=== PATIENT | male | born 1965 | race Caucasian/White ===

== ENCOUNTER 2019-08-05 01:30 | Outpatient (CLI) | payer MEDICAID, SELFPAY ==
--- NOTE | 2019-08-05 | DI.US_ITS ---
EXAM: US HERNIA CLINICAL HISTORY: LUMP RT GROIN, ? HERNIA. TECHNIQUE: Ultrasound was performed using standard protocol. COMPARISON: No exams were available for comparison FINDINGS: Sonographic assessment utilizing grayscale and color Doppler imaging was performed and targeted to th e area of clinical concern. There is a bowel containing right inguinal hernia. There is peristalsis of the bowel. The hernia me asures 3 x 1.2 x 2.4 cm. IMPRESSION: Bowel containing right inguinal hernia. DATA REPOSITORY:
== END 2019-08-05 01:50 ==
PROVIDERS: PCP Nurse Practitioner; Visit Provider Nurse Practitioner
DX: R19.03 Right lower quadrant abdominal swelling, mass and lump (principal); K40.90 Unilateral inguinal hernia, without obstruction or gangrene, not specified as recurrent
CPT/HCPCS: 76857

== ENCOUNTER 2019-08-08 07:40 | Outpatient (CLI) | payer MEDICAID, SELFPAY ==
[2019-08-08 19:12] LABS: COVID-19 RT-PCR UVMMC Result Negative (Negative)
== END 2019-08-08 08:00 ==
PROVIDERS: PCP Nurse Practitioner; Visit Provider Surgery
DX: Z01.818 Encounter for other preprocedural examination (principal); Z11.59 Encounter for screening for other viral diseases
CPT/HCPCS: U0003

== ENCOUNTER 2019-08-12 07:21 | Day surgery (SDC) | payer MEDICAID, SELFPAY ==
[2019-08-12] VITALS (8 sets, daily range): BP systolic 128–147; BP diastolic 83–99; PULSE 53–80; RESP 11–17; TEMP 36.3–37.2; O2SAT 95–98
[2019-08-12] MEDS: Lactated Ringers 1,000 ML 80 ML IV (07:50)
--- NOTE | 2019-08-12 08:35 | PDOC.DSDIS_ITS ---
Discharge Plan Disposition Patient Disposition: HOME Condition: Good Discharge Details Reason For Visit: Right inguinal hernia repair with mesh Attending Provider: Karena Gloria Primary Care Provider: Risa Orellana Home Meds and New Rx's Prescriptions: New hydrocodone-acetaminophen 5-325 mg Tablet 1 - 2 tab PO Q4H PRN (Reason: Pain) Qty: 15 RF: 0 Discharge Instructions Additional Instructions: The top bandage can be removed tomorrow. The steri strips will usually stick for about a week. When the edges start to curl up, they can be removed. It is okay to shower tomorrow, the water can run over the steri strips Do not swim or soak in a tub for two weeks Call for any concerns including fever, increased pain, vomiting, incision redness or drainage. Do not lift more than 15 pounds for four weeks. Walking and stairs are fine. Do not drive if on narcotic pain meds or if limited by pain. May use Tylenol alternating with ibuprofen for pain control. Ice is also an option. The maximum dose for Tylenol is 4000 mg/day. May use ibuprofen 800 mg every 8 hours as needed. If concerned about constipation, you may use a stool softener or milk of magnesia. Referrals: Karena Gloria MD [ [facility] STAFF PHYSICIAN] - (Return on 08/17 for a postop check) Activity:: Lift less than 15 pounds for one month Remove Dressings/Wound Care:: 24 hours Shower/Bathe:: 24 hours Diet:: As Tolerated Discharge Orders Discharge Orders: Discharge Order (Routine); Ordered 08/12/19 Ordered By: Karena Gloria DS: Diagnosis Discharge Diagnosis (1) Inguinal hernia of right side without obstruction or gangrene: Status: Acute
[2019-08-12] MEDS: ceFAZolin 2 GM/50 ML BAG IVPB (09:20)
[2019-08-12] MEDS: fentaNYL 100 MCG/2 ML VIAL IVP (11:32)
[2019-08-12] MEDS: HYDROcodone 5/Acetaminophen 325 TAB PO (12:24)
[2019-08-12] MEDS: Ibuprofen 800 MG TAB PO (12:50)
--- NOTE | 2019-08-12 16:31 | ROE_ITS ---
Date of service: 08/12/19 Operative Note Operative Note DATE OF PROCEDURE: 08/12/19 PRE-OP DIAGNOSIS: Right inguinal hernia POST-OP DIAGNOSIS: other (Right indirect and direct hernia) PROCEDURE: Right inguinal hernia repair with mesh SURGEON: Karena Gloria CRANE OPERATOR: Junior Burroughs ANESTHESIA: GETA, regional and local Patient was transported to: PACU Indications: This 54-year-old man presents with a reducible right inguinal hernia. He had an ultrasound performed that shows bowel present. Procedure Description: The patient was placed supine on the operating table and his right groin was prepped and draped sterilely. The ASIS and pubic tubercle were identified and a transverse incision marked between the 2 locations. Local anesthetic was infiltrated and the Ioban placed. Incision was made with knife and subcutaneous tissue divided with cautery down to the external oblique fascia. Any bridging veins that were encountered were clamped, divided and ligated with 3-0 Vicryl ties. Local anesthetic was infiltrated underneath the external oblique fascia. A small incision was made in the fascia and extended bluntly through the external inguinal ring. The spermatic cord was dissected free at the level of the pubic tubercle and encircled with a Conway drain. There was a small defect within the floor of the inguinal canal. There is also a moderate sized indirect hernia sac that did not have any contents. This was dissected free of the cord structures and suture ligated after opening the sac. A medium mesh plug was sutured into the internal ring with interrupted 2-0 Prolene sutures. The floor of the inguinal canal was reapproximated with 2-0 Prolene sutures. A flat sheet of mesh was sutured to the floor of the inguinal canal in standard Fan fashion. The cord was inspected and was not comp ressed by the mesh. There was good hemostasis. The iliohypogastric and ilioinguinal nerves were visualized and avoided. The external oblique fascia was closed with a running 3-0 Vicryl stitch and Mayte's fascia closed with interrupted 3-0 Vicryl sutures. The skin was then closed with a running 4 Monocryl subcuticular stitch. He tolerated the procedure well and was stable to recovery.
== END 2019-08-12 13:41 | disposition home or self-care (01) ==
PROVIDERS: PCP Nurse Practitioner; Visit Provider Surgery
PROC: (CPT 49505; principal; 2019-08-12 08:30)
DX: K40.90 Unilateral inguinal hernia, without obstruction or gangrene, not specified as recurrent (principal); G89.18 Other acute postprocedural pain
CPT/HCPCS: 49505; 76942; C1781; J0690; J1100; J2405; J3010

== ENCOUNTER 2020-10-13 08:18 | Outpatient (REF) | payer MEDICAID, SELFPAY ==
[2020-10-13 08:42] LABS: HCT 45.7 % (40.0-50.0); HGB 15.1 g/dL (13.5-17.5); MCH 30.3 pg (27.0-33.0); MCV 91.6 fL (80-95); MPV 10.4 fL (8.0-11.0); Platelet Count 164 10^3/uL (130-400); RBC 4.99 10^6/uL (4.36-5.78); RDW 13.2 % (11.8-14.1); RDW-SD 45.1 fL; WBC 5.31 10^3/uL (4.4-10.8)
[2020-10-13 09:02] LABS: ALT 135 U/L (16-63); AST 70 U/L (15-37); Albumin 4.1 g/dL (3.4-5.0); Alkaline Phosphatase 201 U/L (46-116); Anion Gap 14.3 mmol/L (3-11); BUN 16 mg/dL (7-18); Bilirubin, Total 0.5 mg/dL (0.2-1.0); CO2 22.7 mmol/L (21.0-32.0); CREATININE 1.1 mg/dL (0.70-1.30); Calcium 9.4 mg/dL (8.5-10.1); Calculated LDL 125 mg/dL (<100); Chloride 103 mmol/L (98-107); Cholesterol 190 mg/dL (<200); Glucose 154 mg/dL (74-106); HDL Cholesterol 48 mg/dL (40-60); Potassium 3.9 mmol/L (3.5-5.1); Sodium 140 mmol/L (136-145); Triglyceride 86 mg/dL (<150)
[2020-10-13 09:14] LABS: Amylase 58 U/L (25-115); C-Reactive Protein 0.54 mg/dL (0.0-0.3); Lipase 442 U/L (73-393)
== END 2020-10-13 08:19 | disposition home or self-care (01) ==
LOC: NCHCN 08:18
PROVIDERS: PCP Nurse Practitioner; Referring Provider Nurse Practitioner; Visit Provider Nurse Practitioner
DX: R11.0 Nausea (principal); R10.9 Unspecified abdominal pain; R63.4 Abnormal weight loss; E78.5 Hyperlipidemia, unspecified; F32.9 Major depressive disorder, single episode, unspecified
CPT/HCPCS: 80053; 80061; 83690; 85027; 82150; 86140

== ENCOUNTER 2020-10-13 08:21 | Outpatient (CLI) | payer MEDICAID, SELFPAY ==
--- NOTE | 2020-10-13 | DI.CT_ITS ---
Exam(s) CT ABDOMEN PELVIS W EXAM: CT ABDOMEN PELVIS W CLINICAL HISTORY: ABD PAIN, R10.9, WT LOSS, R63.4, NAUSEA, R11.0. TECHNIQUE: Imaging Protocol: Axial computed tomography images with coronal and sagittal reformatted images were created and reviewed CONTRAST MATERIAL: Intravenous: Omnipaque 100cc Oral: None COMPARISON: None FINDINGS: VISUALIZED LUNG BASES: No nodules nor pleural effusions evident. ABDOMEN: There is no ascites. LIVER: There are numerous metastatic lesions throughout both hepatic lobes. GALLBLADDER/BILIARY: No obvious gallbladder pathology. CBD is not dilated. PANCREAS: There is an ominous hypodense mass at the pancreatic neck-body junction which is suspicious for malignancy, measuring approximately 2.5 x 2.3 cm. Pancreatic duct in the remainder of the body a nd tail is slightly dilated. This mass is in the region of the bifurcation of the celiac artery. Ther e does not appear to be encasement of the superior mesenteric artery and vein. SPLEEN: Spleen is not enlarged. No obvious intrasplenic lesions. Splenic and portal veins are paten t. ADRENALS: There are no significant adrenal masses. KIDNEYS:There appears to be a possible nonobstructive calculus in the left kidney measuring 9 x 6 mil limeters, somewhat difficult to differentiate from the intravenous contrast. Nevertheless, there is n o hydronephrosis. There are no solid renal masses.. ABDOMINAL AORTA: Atherosclerotic but not enlarged. LYMPH NODES:There is no retroperitineal nor paraaortic adenopathy. ABDOMINAL WALL: No evidence of significant anterior abdominal wall hernia. GI: There is no evidence of bowel obstruction, free air, nor abscess. PELVIS: GI: No evidence of appendicitis.No evidence of sigmoid diverticulitis. LYMPH NODES: There is no intrapelvic nor inguinal adenopathy. REPRODUCTIVE: Prostate gland is slightly enlarged and contains multiple centrally located calcificati ons. There is no obturator adenopathy URINARY BLADDER: No calculi nor obvious masses evident OSSEOUS: No significant osseous lesions. IMPRESSION: 1. There is an ominous neoplastic appearing mass at the neck-body junction of the pancreas as describ ed above and there are multiple metastatic lesions throughout both hepatic lobes. Findings are consis tent with pancreatic malignancy and multiple hepatic metastases. 2. There is no ascites. 3. No nodules evident in the visualized lung bases. 4. Other findings as above. Sent a stat report. RADIATION DOSE DELIVERED: 533.43mGy.cm Total DLP DATA REPOSITORY: All CT scans at this facility are submitted to the National Radiology Data Registry (NRDR) Dose Index Registry (DIR) with the [employer] (ACR). RADIATION OPTIMIZATION: All CT scans at this facility use at least one of these dose optimization te chniques: automated exposure control; mA and/or kV adjustment per patient size (includes targeted exa ms where dose is matched to clinical indication); or iterative reconstruction.
[2020-10-13] MEDS: Breeza Beverage 473 ML BTL PO (09:19)
[2020-10-13] MEDS: Omnipaque 350 MG/ML 50 ML BTL IJ (09:19)
[2020-10-13] MEDS: Omnipaque 350 MG/ML 100 ML BTL IJ (10:39)
[2020-10-13] MEDS: Normal Saline Flush 10 ML SYR IVP (10:41)
== END 2020-10-13 08:41 ==
PROVIDERS: PCP Nurse Practitioner; Visit Provider Nurse Practitioner
DX: R63.4 Abnormal weight loss (principal); R11.0 Nausea; R10.9 Unspecified abdominal pain; C25.8 Malignant neoplasm of overlapping sites of pancreas; C78.7 Secondary malignant neoplasm of liver and intrahepatic bile duct
CPT/HCPCS: 74177; J3490; Q9967

== ENCOUNTER 2020-11-12 10:58 | Outpatient (CLI) | payer MEDICAID, SELFPAY ==
[2020-11-12 16:34] LABS: Abs Immature Grans 0.02 10^3/uL (0.0-0.06); Absolute Basophil Count 0.01 10^3/uL (0.0-0.2); Absolute Eosinophil Count 0.09 10^3/uL (0.0-0.7); Absolute Lymphocyte Count 1.09 10^3/uL (1.2-3.4); Absolute Monocyte Count 0.62 10^3/uL (0.1-0.8); Absolute Neutrophil Count 5.84 10^3/uL (1.2-6.7); Basophils % 0.1; Eosinophils % 1.2; HCT 44.5 % (40.0-50.0); HGB 14.9 g/dL (13.5-17.5); Immature Grans % 0.3; Lymphocytes % 14.2; MCHC 33.5 % (32.0-36.0); MCV 92.7 fL (80-95); Monocytes % 8.1; Neutrophils % 76.1; Nucleated RBC 0 %; Platelet Count 184 10^3/uL (130-400); RDW 13.8 % (11.8-14.1); RDW-SD 47.6 fL; WBC 7.67 10^3/uL (4.4-10.8)
[2020-11-12 16:45] LABS: Diff Comment Agrees w/ Instrument; RBC Morphology Normal
[2020-11-12 16:47] LABS: ALT 225 U/L (16-63); AST 146 U/L (15-37); Albumin 3.9 g/dL (3.4-5.0); Alkaline Phosphatase 543 U/L (46-116); Anion Gap 9.8 mmol/L (3-11); BUN 20 mg/dL (7-18); CO2 26.2 mmol/L (21.0-32.0); Calcium 9.5 mg/dL (8.5-10.1); Chloride 102 mmol/L (98-107); Glucose 87 mg/dL (74-106); Potassium 4.2 mmol/L (3.5-5.1); Sodium 138 mmol/L (136-145); Total Protein 7.7 g/dL (6.4-8.2)
[2020-11-15 15:09] LABS: CA 19-9 >70000 U/mL (<35)
[2020-11-17 17:05] LABS: DPYD Phenotype Normal metabolizer
== END 2020-11-12 10:59 | disposition home or self-care (01) ==
LOC: LBO 11-19 11:00
PROVIDERS: PCP Nurse Practitioner; Visit Provider Internal Medicine Hematology & Oncology
DX: C25.0 Malignant neoplasm of head of pancreas (principal)
CPT/HCPCS: 36415; 80053; 81232; 85025; 86301

== ENCOUNTER 2020-12-03 00:55 | Outpatient (RCR) | payer MEDICAID, SELFPAY ==
[2020-11-23 07:48] LABS: Abs Immature Grans 0.02 10^3/uL (0.0-0.06); Absolute Basophil Count 0.02 10^3/uL (0.0-0.2); Absolute Eosinophil Count 0.18 10^3/uL (0.0-0.7); Absolute Lymphocyte Count 1.07 10^3/uL (1.2-3.4); Absolute Monocyte Count 0.67 10^3/uL (0.1-0.8); Absolute Neutrophil Count 5.69 10^3/uL (1.2-6.7); Basophils % 0.3; Eosinophils % 2.4; HCT 42.4 % (40.0-50.0); Immature Grans % 0.3; MCH 30.6 pg (27.0-33.0); MCV 92.8 fL (80-95); MPV 10.9 fL (8.0-11.0); Monocytes % 8.8; Neutrophils % 74.2; Nucleated RBC 0 %; Platelet Count 188 10^3/uL (130-400); RBC 4.57 10^6/uL (4.36-5.78); RDW 14.4 % (11.8-14.1); RDW-SD 49.3 fL; WBC 7.65 10^3/uL (4.4-10.8)
[2020-11-23 08:05] LABS: ALT 232 U/L (16-63); AST 181 U/L (15-37); Albumin 3.5 g/dL (3.4-5.0); Alkaline Phosphatase 659 U/L (46-116); Anion Gap 8.8 mmol/L (3-11); BUN 18 mg/dL (7-18); Bilirubin, Total 1.3 mg/dL (0.2-1.0); CO2 28.2 mmol/L (21.0-32.0); Calcium 9.6 mg/dL (8.5-10.1); Chloride 102 mmol/L (98-107); Glucose 115 mg/dL (74-106); Sodium 139 mmol/L (136-145); Total Protein 7.1 g/dL (6.4-8.2)
[2020-11-23] MEDS: Normal Saline Flush 10 ML SYR IVP (08:48)
[2020-12-03] MEDS: Heparin 500 UNITS/5 ML SYRINGE IV (07:37)
[2020-12-03] MEDS: Normal Saline Flush 10 ML SYR IVP (07:37)
[2020-12-03 07:49] LABS: Abs Immature Grans 0.02 10^3/uL (0.0-0.06); Absolute Basophil Count 0.02 10^3/uL (0.0-0.2); Absolute Lymphocyte Count 1.07 10^3/uL (1.2-3.4); Absolute Monocyte Count 0.43 10^3/uL (0.1-0.8); Basophils % 0.3; Eosinophils % 1.6; HCT 40.9 % (40.0-50.0); HGB 13.4 g/dL (13.5-17.5); Immature Grans % 0.3; Lymphocytes % 16.9; MCH 31.5 pg (27.0-33.0); MCHC 32.8 % (32.0-36.0); MCV 96.2 fL (80-95); MPV 10.3 fL (8.0-11.0); Monocytes % 6.8; Neutrophils % 74.1; Nucleated RBC 0 %; Platelet Count 251 10^3/uL (130-400); RBC 4.25 10^6/uL (4.36-5.78); RDW 14.3 % (11.8-14.1); RDW-SD 50.1 fL; WBC 6.34 10^3/uL (4.4-10.8)
[2020-12-03 08:02] LABS: ALT 97 U/L (16-63); AST 43 U/L (15-37); Albumin 3.2 g/dL (3.4-5.0); Alkaline Phosphatase 591 U/L (46-116); Anion Gap 6.6 mmol/L (3-11); BUN 19 mg/dL (7-18); Bilirubin, Total 0.5 mg/dL (0.2-1.0); CO2 28.4 mmol/L (21.0-32.0); CREATININE 0.9 mg/dL (0.70-1.30); Calcium 8.9 mg/dL (8.5-10.1); Chloride 105 mmol/L (98-107); Glucose 129 mg/dL (74-106); Potassium 3.9 mmol/L (3.5-5.1); Sodium 140 mmol/L (136-145); Total Protein 6.8 g/dL (6.4-8.2)
== END 2020-12-05 23:59 | disposition home or self-care (01) ==
LOC: INF 00:55
PROVIDERS: PCP Nurse Practitioner; Visit Provider Internal Medicine Hematology & Oncology
DX: C25.0 Malignant neoplasm of head of pancreas (principal); Z45.2 Encounter for adjustment and management of vascular access device
CPT/HCPCS: 36591; 80053; 85025; 86301

== ENCOUNTER 2020-12-24 02:28 | Outpatient (RCR) | payer MEDICAID, SELFPAY ==
[2020-12-24] MEDS: Normal Saline Flush 10 ML SYR IVP (07:34)
[2020-12-24 07:39] LABS: Abs Immature Grans 0.02 10^3/uL (0.0-0.06); Absolute Basophil Count 0.02 10^3/uL (0.0-0.2); Absolute Eosinophil Count 0.07 10^3/uL (0.0-0.7); Absolute Lymphocyte Count 1.34 10^3/uL (1.2-3.4); Absolute Neutrophil Count 2.83 10^3/uL (1.2-6.7); Basophils % 0.4; Eosinophils % 1.5; HCT 42.7 % (40.0-50.0); HGB 14.2 g/dL (13.5-17.5); Immature Grans % 0.4; Lymphocytes % 28.6; MCH 32.6 pg (27.0-33.0); MCHC 33.3 % (32.0-36.0); MCV 97.9 fL (80-95); MPV 9.9 fL (8.0-11.0); Monocytes % 8.5; Neutrophils % 60.6; Nucleated RBC 0 %; Platelet Count 142 10^3/uL (130-400); RBC 4.36 10^6/uL (4.36-5.78); RDW 14.8 % (11.8-14.1); RDW-SD 53.7 fL; WBC 4.68 10^3/uL (4.4-10.8)
[2020-12-24 07:58] LABS: ALT 94 U/L (16-63); AST 46 U/L (15-37); Albumin 3.6 g/dL (3.4-5.0); Alkaline Phosphatase 267 U/L (46-116); BUN 18 mg/dL (7-18); Bilirubin, Total 0.3 mg/dL (0.2-1.0); CREATININE 0.9 mg/dL (0.70-1.30); Calcium 9.5 mg/dL (8.5-10.1); Chloride 105 mmol/L (98-107); Glucose 115 mg/dL (74-106); Potassium 3.5 mmol/L (3.5-5.1); Sodium 141 mmol/L (136-145); Total Protein 6.9 g/dL (6.4-8.2)
[2020-12-27 16:06] LABS: CA 19-9 15852 U/mL (<35)
== END 2021-01-04 23:59 | disposition home or self-care (01) ==
LOC: INF 02:28
PROVIDERS: PCP Nurse Practitioner; Visit Provider Internal Medicine Hematology & Oncology
DX: C25.0 Malignant neoplasm of head of pancreas (principal); Z45.2 Encounter for adjustment and management of vascular access device
CPT/HCPCS: 36591; 80053; 85025; 86301

== ENCOUNTER 2021-01-20 01:54 | Outpatient (CLI) | payer MEDICAID, SELFPAY ==
[2021-01-20] MEDS: Breeza Beverage 473 ML BTL PO ×2 (10:13→10:14)
[2021-01-20] MEDS: Omnipaque 350 MG/ML 50 ML BTL PO (10:14)
[2021-01-20] MEDS: Omnipaque 350 MG/ML 100 ML BTL IJ (10:17)
--- NOTE | 2021-01-20 10:20 | DI.CT_ITS ---
Exam(s) CT CHEST/ABD/PEL W EXAM: CT CHEST/ABD/PEL W CLINICAL HISTORY: PANCREATIC CA, ASSESS TREATMENT RESPONSE. TECHNIQUE: Imaging Protocol: Axial computed tomography images with coronal and sagittal reformatted images were created and reviewed CONTRAST MATERIAL: Intravenous: Omnipaque 350 Contrast volume:100 ml Oral: Yes. Oral contrast was administered for bowel opacification COMPARISON: CT CT ABDOMEN PELVIS W from 10/13/2020 FINDINGS: CHEST: PULMONARY ARTERIES: There is intraluminal filling defect within 2nd order vessel of the left lung at bifurcation of lingular and lower lobe vessels (series 11/images 75-83). No other intraluminal filli ng defects seen in either lung field. LUNGS: No evidence of pulmonary infarction. No metastatic lung nodules nor pleural effusions. No co nfluent infiltrates. Mild benign-appearing increased markings noted in the inferior lingular segment of the left lung. MEDIASTINUM: There is no hilar nor mediastinal adenopathy. Visualized thyroid unremarkable. CARDIAC: Heart size is normal. There is no pericardial effusion.Caliber thoracic aorta is within nor mal limits. No dissection. There is no shift of the interventricular septum. OSSEOUS: There are now nonexpansile sclerotic densities in vertebral bodies were not previously prese nt and consistent with sclerotic metastases. Also evident in the right iliac bone, not previously pr esent. This measures 1.0 by 1.1 cm in the right iliac bone. Largest seen in the vertebral bodies is 10 x 9 x 15 millimeter., This in L1 vertebral body anteriorly.There is also similar sclerotic bone l esions seen midsternum, also nonexpansile. ABDOMEN: There is no ascites. LIVER: Multiple metastatic lesions are again noted but appear to have somewhat decreased in size, mos t probably response to therapy. GALLBLADDER/BILIARY: No obvious gallbladder pathology. CBD is not dilated. PANCREAS: Mass in the pancreas has slightly decreased in size; the pancreatic mass is again noted to be in the region of the bifurcation of the celiac artery into the splenic artery and common hepatic a rtery, both of which are patent. SPLEEN: Spleen size is upper normal. However, there are now fused hypodensities in the spleen, large st located medially and measuring 2.4 x 1.8 cm. These are possibly metastatic. PORTAL VEIN: The main portal vein remains patent, as do the intrahepatic portal veins. Splenic vein is patent. Portal vein confluence and superior mesenteric veins are patent. ADRENALS: There are no significant adrenal masses. KIDNEYS: Right kidney unremarkable. Nonobstructive calculi in left kidney again noted. No hydroneph rosis nor hydroureter.. No cysts evident. ABDOMINAL AORTA: Atherosclerotic but not enlarged. LYMPH NODES: No prominent lymph nodes. Previously present nodes of slightly decreased in size. ABDOMINAL WALL: No evidence of significant anterior abdominal wall nor inguinal hernia. GI: There is no evidence of bowel obstruction. PELVIS: LYMPH NODES: There is no intrapelvic nor inguinal adenopathy. GI: No evidence of appendicitis.No evidence of sigmoid diverticulitis. URINARY BLADDER: No calculi nor masses evident REPRODUCTIVE: Prostate size upper normal. Prominent central calcifications in the prostate noted. OSSEOUS: Blastic osseous metastases noted in the bones of the pelvis and sacrum vertebral bodies. Al so involving posterior aspect of the left hip acetabulum. IMPRESSION: 1. Intraluminal filling defect in the left lung noted consistent with pulmonary embolus, as described above. There is no evidence of pulmonary infarction nor pleural effusion. No emboli seen in the op posite-right lung. No evidence right heart strain. 2. There are no metastatic lesions either lung and there are no pleural effusions nor intrathoracic a denopathy. 3. Multiple metastatic lesions in the liver again noted although these appear to have somewhat decrea sed in size when compared to the October 2020 study. The mass in the 4. The mass in the pancreas has slightly decreased in size. Pancreatic duct is still dilated. 5. There are now multiple sclerotic metastatic bone lesions in the vertebral bodies and bones of the pelvis, not previously present. 6. Nonobstructive calculi again noted kidney. No other significant renal findings. No hydronephros is. Other findings as above RADIATION DOSE DELIVERED: 1,015.79mGy.cm Total DLP DATA REPOSITORY: All CT scans at this facility are submitted to the National Radiology Data Registry (NRDR) Dose Index Registry (DIR) with the [employer] (ACR). RADIATION OPTIMIZATION: All CT scans at this facility use at least one of these dose optimization te chniques: automated exposure control; mA and/or kV adjustment per patient size (includes targeted exa ms where dose is matched to clinical indication); or iterative reconstruction.
== END 2021-01-20 02:14 ==
PROVIDERS: PCP Nurse Practitioner; Visit Provider Internal Medicine Hematology & Oncology
DX: C25.0 Malignant neoplasm of head of pancreas (principal)
CPT/HCPCS: 74177; 71260; J3490; Q9967

== ENCOUNTER 2021-01-20 02:09 | Outpatient (RCR) | payer MEDICAID, SELFPAY ==
[2021-01-07] MEDS: Normal Saline Flush 10 ML SYR IVP (07:42)
[2021-01-07 07:45] LABS: Abs Immature Grans 0.01 10^3/uL (0.0-0.06); Absolute Basophil Count 0.01 10^3/uL (0.0-0.2); Absolute Eosinophil Count 0.06 10^3/uL (0.0-0.7); Absolute Lymphocyte Count 1.19 10^3/uL (1.2-3.4); Absolute Monocyte Count 0.37 10^3/uL (0.1-0.8); Absolute Neutrophil Count 4.18 10^3/uL (1.2-6.7); Basophils % 0.2; HCT 43.8 % (40.0-50.0); HGB 14.6 g/dL (13.5-17.5); Immature Grans % 0.2; Lymphocytes % 20.4; MCH 32.2 pg (27.0-33.0); MCHC 33.3 % (32.0-36.0); MCV 96.5 fL (80-95); Monocytes % 6.4; Neutrophils % 71.8; Nucleated RBC 0 %; Platelet Count 143 10^3/uL (130-400); RBC 4.54 10^6/uL (4.36-5.78); RDW 14.8 % (11.8-14.1); RDW-SD 53.1 fL; WBC 5.82 10^3/uL (4.4-10.8)
[2021-01-07 08:05] LABS: ALT 88 U/L (16-63); AST 40 U/L (15-37); Albumin 3.7 g/dL (3.4-5.0); Alkaline Phosphatase 229 U/L (46-116); Anion Gap 7.6 mmol/L (3-11); BUN 18 mg/dL (7-18); Bilirubin, Total 0.3 mg/dL (0.2-1.0); CO2 25.4 mmol/L (21.0-32.0); CREATININE 0.9 mg/dL (0.70-1.30); Calcium 9.3 mg/dL (8.5-10.1); Chloride 106 mmol/L (98-107); Glucose 160 mg/dL (74-106); Potassium 3.5 mmol/L (3.5-5.1); Sodium 139 mmol/L (136-145); Total Protein 7.1 g/dL (6.4-8.2)
[2021-01-10 12:27] LABS: CA 19-9 6484 U/mL (<35)
[2021-01-20] MEDS: Normal Saline Flush 10 ML SYR IVP (08:09)
[2021-01-20 08:38] LABS: Abs Immature Grans 0.02 10^3/uL (0.0-0.06); Absolute Basophil Count 0.02 10^3/uL (0.0-0.2); Absolute Eosinophil Count 0.05 10^3/uL (0.0-0.7); Absolute Lymphocyte Count 1.45 10^3/uL (1.2-3.4); Absolute Neutrophil Count 3.52 10^3/uL (1.2-6.7); Basophils % 0.4; Eosinophils % 0.9; HCT 43.6 % (40.0-50.0); HGB 14.4 g/dL (13.5-17.5); Immature Grans % 0.4; Lymphocytes % 26.1; MCH 32.1 pg (27.0-33.0); MCV 97.3 fL (80-95); MPV 9.9 fL (8.0-11.0); Neutrophils % 63.2; Nucleated RBC 0 %; Platelet Count 142 10^3/uL (130-400); RBC 4.48 10^6/uL (4.36-5.78); RDW 14.9 % (11.8-14.1); RDW-SD 53.6 fL; WBC 5.56 10^3/uL (4.4-10.8)
[2021-01-20 09:00] LABS: ALT 82 U/L (16-63); AST 40 U/L (15-37); Albumin 3.7 g/dL (3.4-5.0); Alkaline Phosphatase 181 U/L (46-116); Anion Gap 8.3 mmol/L (3-11); BUN 19 mg/dL (7-18); Bilirubin, Total 0.2 mg/dL (0.2-1.0); CO2 25.7 mmol/L (21.0-32.0); CREATININE 0.9 mg/dL (0.70-1.30); Calcium 9.2 mg/dL (8.5-10.1); Chloride 107 mmol/L (98-107); Glucose 88 mg/dL (74-106); Sodium 141 mmol/L (136-145)
[2021-01-21 12:04] LABS: CA 19-9 3904 U/mL (<35)
== END 2021-02-04 23:59 | disposition home or self-care (01) ==
LOC: INF 02:09
PROVIDERS: PCP Nurse Practitioner; Visit Provider Internal Medicine Hematology & Oncology
DX: C25.0 Malignant neoplasm of head of pancreas (principal); Z45.2 Encounter for adjustment and management of vascular access device
CPT/HCPCS: 36591; 80053; 85025; 86301

== ENCOUNTER 2021-02-25 01:18 | Outpatient (RCR) | payer MEDICAID, SELFPAY ==
[2021-02-11] MEDS: Normal Saline Flush 10 ML SYR IVP (07:44)
[2021-02-11 07:56] LABS: Abs Immature Grans 0.06 10^3/uL (0.0-0.06); Absolute Basophil Count 0.03 10^3/uL (0.0-0.2); Absolute Eosinophil Count 0.04 10^3/uL (0.0-0.7); Absolute Lymphocyte Count 1.77 10^3/uL (1.2-3.4); Absolute Monocyte Count 0.68 10^3/uL (0.1-0.8); Absolute Neutrophil Count 3.65 10^3/uL (1.2-6.7); Basophils % 0.5; Eosinophils % 0.6; HCT 46.4 % (40.0-50.0); HGB 15.4 g/dL (13.5-17.5); Lymphocytes % 28.4; MCH 32.2 pg (27.0-33.0); MCHC 33.2 % (32.0-36.0); MCV 96.9 fL (80-95); MPV 9.8 fL (8.0-11.0); Monocytes % 10.9; Neutrophils % 58.6; Nucleated RBC 0 %; Platelet Count 160 10^3/uL (130-400); RBC 4.79 10^6/uL (4.36-5.78); RDW 15.8 % (11.8-14.1); RDW-SD 56.5 fL; WBC 6.23 10^3/uL (4.4-10.8)
[2021-02-11 08:09] LABS: ALT 141 U/L (16-63); AST 49 U/L (15-37); Alkaline Phosphatase 157 U/L (46-116); Anion Gap 9.6 mmol/L (3-11); BUN 19 mg/dL (7-18); Bilirubin, Total 0.2 mg/dL (0.2-1.0); CO2 28.4 mmol/L (21.0-32.0); CREATININE 1.1 mg/dL (0.70-1.30); Calcium 9.8 mg/dL (8.5-10.1); Chloride 101 mmol/L (98-107); Glucose 145 mg/dL (74-106); Potassium 3.4 mmol/L (3.5-5.1); Sodium 139 mmol/L (136-145); Total Protein 7.5 g/dL (6.4-8.2)
[2021-02-14 11:17] LABS: CA 19-9 3114 U/mL (<35)
[2021-02-25] MEDS: Normal Saline Flush 10 ML SYR IVP (07:36)
[2021-02-25 07:51] LABS: Abs Immature Grans 0.03 10^3/uL (0.0-0.06); Absolute Basophil Count 0.01 10^3/uL (0.0-0.2); Absolute Eosinophil Count 0.04 10^3/uL (0.0-0.7); Absolute Lymphocyte Count 1.35 10^3/uL (1.2-3.4); Absolute Monocyte Count 0.37 10^3/uL (0.1-0.8); Absolute Neutrophil Count 3.22 10^3/uL (1.2-6.7); Basophils % 0.2; Eosinophils % 0.8; HCT 43.5 % (40.0-50.0); HGB 14.5 g/dL (13.5-17.5); Immature Grans % 0.6; Lymphocytes % 26.9; MCH 32.4 pg (27.0-33.0); MCHC 33.3 % (32.0-36.0); MCV 97.3 fL (80-95); MPV 9.8 fL (8.0-11.0); Monocytes % 7.4; Neutrophils % 64.1; Nucleated RBC 0 %; Platelet Count 120 10^3/uL (130-400); RBC 4.47 10^6/uL (4.36-5.78); WBC 5.02 10^3/uL (4.4-10.8)
[2021-02-25 08:03] LABS: ALT 78 U/L (16-63); AST 38 U/L (15-37); Albumin 3.8 g/dL (3.4-5.0); Alkaline Phosphatase 147 U/L (46-116); Anion Gap 9.7 mmol/L (3-11); BUN 12 mg/dL (7-18); Bilirubin, Total 0.3 mg/dL (0.2-1.0); CO2 26.3 mmol/L (21.0-32.0); Calcium 9.2 mg/dL (8.5-10.1); Chloride 103 mmol/L (98-107); Glucose 165 mg/dL (74-106); Potassium 3.3 mmol/L (3.5-5.1); Sodium 139 mmol/L (136-145); Total Protein 7.1 g/dL (6.4-8.2)
[2021-02-28 12:44] LABS: CA 19-9 3110 U/mL (<35)
== END 2021-03-07 23:59 | disposition home or self-care (01) ==
LOC: INF 01:18
PROVIDERS: PCP Nurse Practitioner; Visit Provider Internal Medicine Hematology & Oncology
DX: C25.0 Malignant neoplasm of head of pancreas (principal); Z45.2 Encounter for adjustment and management of vascular access device
CPT/HCPCS: 36591; 80053; 85025; 86301

== ENCOUNTER 2021-03-24 01:07 | Outpatient (CLI) | payer MEDICAID, SELFPAY ==
--- NOTE | 2021-03-24 | DI.CT_ITS ---
Exam(s) CT CHEST/ABD/PEL W EXAM: CT CHEST/ABD/PEL W CLINICAL HISTORY: PANCREATIC CA METASTASIZED TO LIVER,C25.9,C78.7,RESTAGING TECHNIQUE: Imaging Protocol: Axial computed tomography images with coronal and sagittal reformatted images were created and reviewed CONTRAST MATERIAL: Intravenous: Omnipaque 350 Contrast volume:100 mL Oral: Yes COMPARISON: CT CT ABDOMEN PELVIS W from 10/13/[address] CHEST/ABD/PEL W from 01/20/2021 FINDINGS: CHEST: Tracheobronchial tree: Patent where visualized. Pulmonary parenchyma: No consolidation or dominant measurable mass. No architectural distortion. Visualized thyroid gland: Unremarkable. Mediastinum and Abimbola: No dominant adenopathy or fluid collection. The esophagus is unremarkable. Pleura: No effusion or pneumothorax. Heart: The heart is not dilated. Coronary artery calcification. No pericardial effusion. Pulmonary arteries: No pulmonary emboli are identified. Aorta: Thoracic aorta non-dilated. No evidence of dissection. Lymph nodes: Within normal limits. Tubes, Catheters, and Lines: The tip of the Bajpcd-X-Xnxh catheter is at the junction of the superior vena cava and right atrium. Soft tissues: Unremarkable. Bones:Osseous sclerotic metastatic disease is noted. ABDOMEN: Liver: There are multiple hepatic metastases. Some of the lesions have shown increase in size. Ther e is a subcapsular lesion in the left lobe which now measures 1.8 x 1.6 cm. This compares to 0.8 x 1 .4 cm. The majority of the lesions are stable in size. Portal, Superior Mesenteric, and Splenic Veins: There does appear to be some narrowing of the splenic vein at the confluence with the superior mesenteric vein. There are numerous left upper quadrant co llaterals that have developed since the initial CT scan from 10/13/2020. Gallbladder and Biliary Tract: No radiodense calculus or dilation. Pancreas: The pancreatic mass has a similar size compared to the prior examination from 01/20/2021. Atrophy of the body and tail of the pancreas is noted. The adjacent arteries are patent. Spleen: Upper limits of normal in size. Adrenals: There is 1.2 cm nodule in the right adrenal gland. The left adrenal gland appears stable. Kidneys: Normal size, contour and axis. Left nephrolithiasis. No hydronephrosis. No masses seen. Abdominal Aorta: Abdominal portion non-dilated. Atherosclerosis. Bowel: No obstruction or bowel wall thickening. Appendix is unremarkable. There is a large amount of stool throughout the colon Peritoneal Cavity: No ascites, collection or mesenteric inflammatory response. No free air. Lymph Nodes: Within normal limits. Bones: Osseous metastatic disease. Soft Tissues: Unremarkable. PELVIS: Bladder: There is diffuse thickening of the wall of the urinary bladder. This may be due to underdis tention. No perivesicular inflammatory changes are seen. Reproductive Organs: Unremarkable as visualized. Lymph Nodes: Within normal limits. Bones: Osseous metastatic disease. IMPRESSION: 1. Stable size of the pancreatic mass. There does appear to be some narrowing of the splenic vein at its confluence with the superior mesenteric vein. Numerous upper abdominal collaterals are seen. 2. Hepatic metastatic disease. Overall stable size of the nodules. There is increase in size of 1 o f the nodules in the left lobe of the liver. 3. Stable right adrenal nodule. 4. Osseous metastatic disease. 5. No evidence of thoracic metastatic disease. RADIATION DOSE DELIVERED: 1,151.33mGy.cm Total DLP DATA REPOSITORY: All CT scans at this facility are submitted to the National Radiology Data Registry (NRDR) Dose Index Registry (DIR) with the [employer] (ACR). RADIATION OPTIMIZATION: All CT scans at this facility use at least one of these dose optimization te chniques: automated exposure control; mA and/or kV adjustment per patient size (includes targeted exa ms where dose is matched to clinical indication); or iterative reconstruction.
[2021-03-24] MEDS: Breeza Beverage 473 ML BTL PO (09:59)
[2021-03-24] MEDS: Omnipaque 350 MG/ML 50 ML BTL IJ (10:01)
[2021-03-24] MEDS: Omnipaque 350 MG/ML 100 ML BTL IJ (11:11)
== END 2021-03-24 01:27 ==
PROVIDERS: PCP Nurse Practitioner; Visit Provider Internal Medicine Hematology & Oncology
DX: C25.9 Malignant neoplasm of pancreas, unspecified (principal); C78.7 Secondary malignant neoplasm of liver and intrahepatic bile duct; N20.0 Calculus of kidney; N32.89 Other specified disorders of bladder; C79.51 Secondary malignant neoplasm of bone
CPT/HCPCS: 36415; 74177; 80053; 71260; 85025; 86301; J3490; Q9967

== ENCOUNTER 2021-03-24 01:19 | Outpatient (RCR) | payer MEDICAID, SELFPAY ==
[2021-03-11] MEDS: Normal Saline Flush 10 ML SYR IVP (07:43)
[2021-03-11 07:53] LABS: Abs Immature Grans 0.08 10^3/uL (0.0-0.06); Absolute Basophil Count 0.01 10^3/uL (0.0-0.2); Absolute Eosinophil Count 0.02 10^3/uL (0.0-0.7); Absolute Lymphocyte Count 1.44 10^3/uL (1.2-3.4); Absolute Monocyte Count 0.57 10^3/uL (0.1-0.8); Absolute Neutrophil Count 3.16 10^3/uL (1.2-6.7); Basophils % 0.2; Eosinophils % 0.4; HGB 14.8 g/dL (13.5-17.5); Immature Grans % 1.5; Lymphocytes % 27.3; MCH 32.9 pg (27.0-33.0); MCHC 33.6 % (32.0-36.0); MCV 97.8 fL (80-95); Monocytes % 10.8; Neutrophils % 59.8; Nucleated RBC 0 %; Platelet Count 130 10^3/uL (130-400); RDW-SD 54.4 fL; WBC 5.28 10^3/uL (4.4-10.8)
[2021-03-11 08:02] LABS: ALT 106 U/L (16-63); AST 41 U/L (15-37); Albumin 3.9 g/dL (3.4-5.0); Alkaline Phosphatase 150 U/L (46-116); Anion Gap 11.6 mmol/L (3-11); BUN 21 mg/dL (7-18); Bilirubin, Total 0.3 mg/dL (0.2-1.0); CO2 24.4 mmol/L (21.0-32.0); CREATININE 1.1 mg/dL (0.70-1.30); Calcium 9.6 mg/dL (8.5-10.1); Chloride 104 mmol/L (98-107); Glucose 129 mg/dL (74-106); Potassium 3.6 mmol/L (3.5-5.1); Sodium 140 mmol/L (136-145); Total Protein 7.4 g/dL (6.4-8.2)
[2021-03-14 12:03] LABS: CA 19-9 2940 U/mL (<35)
[2021-03-24] MEDS: Normal Saline Flush 10 ML SYR IVP (09:18)
[2021-03-24 09:44] LABS: Abs Immature Grans 0.02 10^3/uL (0.0-0.06); Absolute Basophil Count 0.01 10^3/uL (0.0-0.2); Absolute Eosinophil Count 0.05 10^3/uL (0.0-0.7); Absolute Lymphocyte Count 1.45 10^3/uL (1.2-3.4); Absolute Monocyte Count 0.52 10^3/uL (0.1-0.8); Absolute Neutrophil Count 3.63 10^3/uL (1.2-6.7); Basophils % 0.2; Eosinophils % 0.9; HCT 42.9 % (40.0-50.0); HGB 14.5 g/dL (13.5-17.5); Immature Grans % 0.4; Lymphocytes % 25.5; MCH 33.6 pg (27.0-33.0); MCHC 33.8 % (32.0-36.0); MCV 99.5 fL (80-95); MPV 10.1 fL (8.0-11.0); Monocytes % 9.2; Neutrophils % 63.8; Nucleated RBC 0 %; Platelet Count 105 10^3/uL (130-400); RBC 4.31 10^6/uL (4.36-5.78); RDW 14.8 % (11.8-14.1); WBC 5.68 10^3/uL (4.4-10.8)
[2021-03-24 09:53] LABS: ALT 89 U/L (16-63); AST 51 U/L (15-37); Albumin 3.6 g/dL (3.4-5.0); Alkaline Phosphatase 138 U/L (46-116); BUN 15 mg/dL (7-18); Bilirubin, Total 0.3 mg/dL (0.2-1.0); CREATININE 0.9 mg/dL (0.70-1.30); Calcium 9.4 mg/dL (8.5-10.1); Chloride 106 mmol/L (98-107); Glucose 87 mg/dL (74-106); Potassium 4.1 mmol/L (3.5-5.1); Sodium 139 mmol/L (136-145); Total Protein 6.9 g/dL (6.4-8.2)
[2021-03-25 12:14] LABS: CA 19-9 2500 U/mL (<35)
== END 2021-04-04 23:59 | disposition home or self-care (01) ==
LOC: INF 01:19
PROVIDERS: PCP Nurse Practitioner; Visit Provider Internal Medicine Hematology & Oncology
DX: C25.0 Malignant neoplasm of head of pancreas (principal); Z45.2 Encounter for adjustment and management of vascular access device
CPT/HCPCS: 36591; 80053; 85025; 86301

== ENCOUNTER 2021-05-05 02:35 | Outpatient (CLI) | payer MEDICAID, SELFPAY ==
[2021-05-05] MEDS: Omnipaque 350 MG/ML 50 ML BTL PO (09:25)
[2021-05-05] MEDS: Breeza Beverage 473 ML BTL PO (09:25)
--- NOTE | 2021-05-05 09:30 | DI.CT_ITS ---
Exam(s) CT CHEST/ABD/PEL W EXAM: CT CHEST/ABD/PEL W CLINICAL HISTORY: PANCREATIC CA METASTASIZED TO LIVER, C25.9, C78.7. TECHNIQUE: Imaging Protocol: Axial computed tomography images with coronal and sagittal reformatted images were created and reviewed CONTRAST MATERIAL: Intravenous: Omnipaque 350 Contrast volume:100 ml Oral: no COMPARISON: CT CT CHEST/ABD/PEL W from 03/24/2021 FINDINGS: CHEST: Port over right upper chest wall with tip in the upper right atrium. Tracheobronchial tree: Patent where visualized. Mediastinum and Abimbola: No dominant adenopathy or fluid collection. Pulmonary parenchyma: No consolidation or dominant measurable mass. No pulmonary nodules. Pleura: No effusion or pneumothorax. Lymph nodes: Within normal limits. Aorta: Thoracic portion non-dilated. No significant atherosclerotic changes. Heart: Normal size. Mild coronary artery calcifications. Bones: Scattered small sclerotic foci in the spine, shoulders and a few ribs. ABDOMEN: Liver: Normal density. Stable innumerable hepatic metastases. Gallbladder and biliary tract: No radiodense calculus or dilation. Pancreas: Stable size of mass in the inferior pancreatic head. Stable ductal dilatation and atrophy of the body and tail. no abnormal calcifications or inflammatory process. Stable appearance of narr owing of the splenic vein with multiple collaterals. Spleen: Normal. Kidneys: Normal size, contour and axis. Stones lower pole left kidney. No obstructive uropathy. No masses seen. Adrenal glands: Stable small nodule right adrenal gland.. Aorta: Abdominal portion non-dilated. Atherosclerotic changes lower abdominal aorta and proximal il iac arteries. Lymph nodes: Within normal limits. Soft tissues: Unremarkable. PELVIS: Bladder: Symmetric distention, no gross wall thickening. Bowel: Large quantity of stool throughout the colon. No obstruction or bowel wall thickening. Peritoneal cavity: No ascites, collection or mesenteric inflammatory response. Bones: Stable scattered sclerotic foci in the spine and pelvis. Reproductive organs: Prostate calcifications. Prostate mildly enlarged.. IMPRESSION: Stable liver metastasis. Stable size mass inferior pancreatic head. Stable narrowing of the splenic vein. Stable sclerotic bony metastases. RADIATION DOSE DELIVERED: 1,182.35mGy.cm Total DLP DATA REPOSITORY: All CT scans at this facility are submitted to the National Radiology Data Registry (NRDR) Dose Index Registry (DIR) with the [employer] (ACR). RADIATION OPTIMIZATION: All CT scans at this facility use at least one of these dose optimization te chniques: automated exposure control; mA and/or kV adjustment per patient size (includes targeted exa ms where dose is matched to clinical indication); or iterative reconstruction.
[2021-05-05] MEDS: Omnipaque 350 MG/ML 100 ML BTL IJ (11:07)
== END 2021-05-05 02:55 ==
PROVIDERS: PCP Nurse Practitioner; Visit Provider Nurse Practitioner Adult Health
DX: C25.9 Malignant neoplasm of pancreas, unspecified (principal); C78.7 Secondary malignant neoplasm of liver and intrahepatic bile duct
CPT/HCPCS: 74177; 80053; 71260; 85025; 86301; J3490; Q9967

== ENCOUNTER 2021-05-05 03:00 | Outpatient (RCR) | payer MEDICAID, SELFPAY ==
[2021-04-08 07:46] LABS: Abs Immature Grans 0.02 10^3/uL (0.0-0.06); Absolute Basophil Count 0.01 10^3/uL (0.0-0.2); Absolute Eosinophil Count 0.06 10^3/uL (0.0-0.7); Absolute Monocyte Count 0.49 10^3/uL (0.1-0.8); Absolute Neutrophil Count 3.23 10^3/uL (1.2-6.7); Basophils % 0.2; Eosinophils % 1.2; HCT 44.5 % (40.0-50.0); Immature Grans % 0.4; Lymphocytes % 26.9; MCH 33.9 pg (27.0-33.0); MCHC 33.7 % (32.0-36.0); MCV 100.7 fL (80-95); MPV 10.7 fL (8.0-11.0); Monocytes % 9.4; Neutrophils % 61.9; Nucleated RBC 0 %; Platelet Count 100 10^3/uL (130-400); RBC 4.42 10^6/uL (4.36-5.78); RDW 14.9 % (11.8-14.1); RDW-SD 55.8 fL; WBC 5.21 10^3/uL (4.4-10.8)
[2021-04-08] MEDS: Normal Saline Flush 10 ML SYR IVP (07:46)
[2021-04-08 08:03] LABS: ALT 143 U/L (16-63); AST 66 U/L (15-37); Albumin 3.8 g/dL (3.4-5.0); Alkaline Phosphatase 178 U/L (46-116); Anion Gap 11.8 mmol/L (3-11); BUN 14 mg/dL (7-18); Bilirubin, Total 0.4 mg/dL (0.2-1.0); CO2 23.2 mmol/L (21.0-32.0); CREATININE 1.1 mg/dL (0.70-1.30); Calcium 9.2 mg/dL (8.5-10.1); Chloride 105 mmol/L (98-107); Glucose 170 mg/dL (74-106); Potassium 3.5 mmol/L (3.5-5.1); Sodium 140 mmol/L (136-145); Total Protein 7.2 g/dL (6.4-8.2)
[2021-04-11 12:33] LABS: CA 19-9 2052 U/mL (<35)
[2021-04-22] MEDS: Normal Saline Flush 10 ML SYR IVP (07:31)
[2021-04-22 07:43] LABS: Abs Immature Grans 0.02 10^3/uL (0.0-0.06); Absolute Basophil Count 0.02 10^3/uL (0.0-0.2); Absolute Eosinophil Count 0.04 10^3/uL (0.0-0.7); Absolute Lymphocyte Count 1.08 10^3/uL (1.2-3.4); Absolute Monocyte Count 0.41 10^3/uL (0.1-0.8); Absolute Neutrophil Count 2.54 10^3/uL (1.2-6.7); Basophils % 0.5; HCT 43.6 % (40.0-50.0); HGB 14.6 g/dL (13.5-17.5); Immature Grans % 0.5; Lymphocytes % 26.3; MCH 33.8 pg (27.0-33.0); MCHC 33.5 % (32.0-36.0); MCV 100.9 fL (80-95); MPV 10.8 fL (8.0-11.0); Neutrophils % 61.7; Nucleated RBC 0 %; Platelet Count 108 10^3/uL (130-400); RBC 4.32 10^6/uL (4.36-5.78); RDW 14.6 % (11.8-14.1); RDW-SD 54.7 fL; WBC 4.11 10^3/uL (4.4-10.8)
[2021-04-22 08:01] LABS: ALT 103 U/L (16-63); AST 45 U/L (15-37); Albumin 3.9 g/dL (3.4-5.0); Alkaline Phosphatase 185 U/L (46-116); Anion Gap 12.7 mmol/L (3-11); BUN 18 mg/dL (7-18); Bilirubin, Total 0.4 mg/dL (0.2-1.0); CO2 23.3 mmol/L (21.0-32.0); CREATININE 1.1 mg/dL (0.70-1.30); Calcium 9.3 mg/dL (8.5-10.1); Chloride 102 mmol/L (98-107); Glucose 191 mg/dL (74-106); Potassium 3.2 mmol/L (3.5-5.1); Sodium 138 mmol/L (136-145); Total Protein 7.2 g/dL (6.4-8.2)
[2021-04-25 12:19] LABS: CA 19-9 2266 U/mL (<35)
[2021-05-05] MEDS: Normal Saline Flush 10 ML SYR IVP (09:09)
[2021-05-05 09:35] LABS: Abs Immature Grans 0.02 10^3/uL (0.0-0.06); Absolute Basophil Count 0.01 10^3/uL (0.0-0.2); Absolute Eosinophil Count 0.05 10^3/uL (0.0-0.7); Absolute Lymphocyte Count 1.14 10^3/uL (1.2-3.4); Absolute Monocyte Count 0.51 10^3/uL (0.1-0.8); Absolute Neutrophil Count 2.77 10^3/uL (1.2-6.7); Basophils % 0.2; Eosinophils % 1.1; HCT 43.5 % (40.0-50.0); HGB 14.3 g/dL (13.5-17.5); Immature Grans % 0.4; Lymphocytes % 25.3; MCH 33.4 pg (27.0-33.0); MCHC 32.9 % (32.0-36.0); MCV 101.6 fL (80-95); MPV 10.5 fL (8.0-11.0); Monocytes % 11.3; Neutrophils % 61.7; Nucleated RBC 0 %; RBC 4.28 10^6/uL (4.36-5.78); RDW 14.8 % (11.8-14.1); RDW-SD 55.7 fL
[2021-05-05 09:45] LABS: ALT 152 U/L (16-63); AST 68 U/L (15-37); Albumin 3.7 g/dL (3.4-5.0); Alkaline Phosphatase 215 U/L (46-116); Anion Gap 8.6 mmol/L (3-11); BUN 16 mg/dL (7-18); Bilirubin, Total 0.4 mg/dL (0.2-1.0); CO2 25.4 mmol/L (21.0-32.0); CREATININE 0.9 mg/dL (0.70-1.30); Calcium 9.8 mg/dL (8.5-10.1); Chloride 106 mmol/L (98-107); Glucose 95 mg/dL (74-106); Sodium 140 mmol/L (136-145)
[2021-05-05 10:26] LABS: Platelet Count 88 10^3/uL (130-400)
[2021-05-06 13:06] LABS: CA 19-9 2158 U/mL (<35)
== END 2021-05-05 23:59 | disposition home or self-care (01) ==
LOC: INF 03:00
PROVIDERS: PCP Nurse Practitioner; Visit Provider Internal Medicine Hematology & Oncology
DX: Z45.2 Encounter for adjustment and management of vascular access device (principal); C25.0 Malignant neoplasm of head of pancreas
CPT/HCPCS: 36591; 80053; 85025; 86301

== ENCOUNTER 2021-06-03 01:12 | Outpatient (RCR) | payer MEDICAID, SELFPAY ==
[2021-05-20 07:55] LABS: Abs Immature Grans 0.02 10^3/uL (0.0-0.06); Absolute Basophil Count 0.01 10^3/uL (0.0-0.2); Absolute Eosinophil Count 0.07 10^3/uL (0.0-0.7); Absolute Lymphocyte Count 0.94 10^3/uL (1.2-3.4); Absolute Monocyte Count 0.41 10^3/uL (0.1-0.8); Absolute Neutrophil Count 2.95 10^3/uL (1.2-6.7); Basophils % 0.2; Eosinophils % 1.6; HGB 14.7 g/dL (13.5-17.5); Immature Grans % 0.5; Lymphocytes % 21.4; MCH 34.1 pg (27.0-33.0); MCHC 33.4 % (32.0-36.0); MCV 102.1 fL (80-95); MPV 10.9 fL (8.0-11.0); Monocytes % 9.3; Platelet Count 109 10^3/uL (130-400); RBC 4.31 10^6/uL (4.36-5.78); RDW 14.5 % (11.8-14.1); RDW-SD 55.5 fL
[2021-05-20] MEDS: Normal Saline Flush 10 ML SYR IVP (08:00)
[2021-05-20 08:06] LABS: ALT 198 U/L (16-63); AST 82 U/L (15-37); Albumin 3.7 g/dL (3.4-5.0); Alkaline Phosphatase 280 U/L (46-116); Anion Gap 9.7 mmol/L (3-11); BUN 15 mg/dL (7-18); Bilirubin, Total 0.4 mg/dL (0.2-1.0); CO2 26.3 mmol/L (21.0-32.0); Calcium 9.2 mg/dL (8.5-10.1); Chloride 103 mmol/L (98-107); Glucose 151 mg/dL (74-106); Potassium 3.4 mmol/L (3.5-5.1); Sodium 139 mmol/L (136-145)
[2021-05-23 15:24] LABS: CA 19-9 3808 U/mL (<35)
== END 2021-06-04 23:59 | disposition home or self-care (01) ==
LOC: INF 01:12
PROVIDERS: PCP Nurse Practitioner; Visit Provider Internal Medicine Hematology & Oncology
DX: C25.0 Malignant neoplasm of head of pancreas (principal); Z45.2 Encounter for adjustment and management of vascular access device
CPT/HCPCS: 36591; 80053; 85025; 86301

== ENCOUNTER 2021-06-24 01:48 | Outpatient (RCR) | payer MEDICAID, SELFPAY ==
[2021-06-10] MEDS: Normal Saline Flush 10 ML SYR IVP (09:04)
[2021-06-10 09:12] LABS: Abs Immature Grans 0.02 10^3/uL (0.0-0.06); Absolute Basophil Count 0.02 10^3/uL (0.0-0.2); Absolute Eosinophil Count 0.04 10^3/uL (0.0-0.7); Absolute Lymphocyte Count 0.57 10^3/uL (1.2-3.4); Absolute Monocyte Count 0.51 10^3/uL (0.1-0.8); Absolute Neutrophil Count 3.18 10^3/uL (1.2-6.7); Basophils % 0.5; Eosinophils % 0.9; HGB 13.9 g/dL (13.5-17.5); Immature Grans % 0.5; Lymphocytes % 13.1; MCH 34.2 pg (27.0-33.0); MCHC 33.9 % (32.0-36.0); MCV 101 fL (80-95); MPV 11.2 fL (8.0-11.0); Monocytes % 11.8; Neutrophils % 73.2; RBC 4.06 10^6/uL (4.36-5.78); RDW 13.6 % (11.8-14.1); RDW-SD 51.6 fL; WBC 4.34 10^3/uL (4.4-10.8)
[2021-06-10 09:13] LABS: Platelet Count 98 10^3/uL (130-400)
[2021-06-10 09:32] LABS: ALT 159 U/L (16-63); AST 84 U/L (15-37); Albumin 3.6 g/dL (3.4-5.0); Alkaline Phosphatase 368 U/L (46-116); Anion Gap 7.9 mmol/L (3-11); BUN 16 mg/dL (7-18); Bilirubin, Total 0.5 mg/dL (0.2-1.0); CO2 27.1 mmol/L (21.0-32.0); Calcium 9.2 mg/dL (8.5-10.1); Chloride 102 mmol/L (98-107); Glucose 144 mg/dL (74-106); Potassium 4.1 mmol/L (3.5-5.1); Sodium 137 mmol/L (136-145)
[2021-06-14 08:59] LABS: CA 19-9 10778 U/mL (<35)
[2021-06-24] MEDS: Normal Saline Flush 10 ML SYR IVP (07:32)
[2021-06-24 07:38] LABS: Abs Immature Grans 0.02 10^3/uL (0.0-0.06); Absolute Basophil Count 0.01 10^3/uL (0.0-0.2); Absolute Eosinophil Count 0.03 10^3/uL (0.0-0.7); Absolute Lymphocyte Count 0.79 10^3/uL (1.2-3.4); Absolute Monocyte Count 0.48 10^3/uL (0.1-0.8); Absolute Neutrophil Count 4.62 10^3/uL (1.2-6.7); Basophils % 0.2; Eosinophils % 0.5; HCT 41.5 % (40.0-50.0); HGB 14.3 g/dL (13.5-17.5); Immature Grans % 0.3; Lymphocytes % 13.3; MCH 33.9 pg (27.0-33.0); MCHC 34.5 % (32.0-36.0); MCV 98 fL (80-95); MPV 10.8 fL (8.0-11.0); Monocytes % 8.1; Neutrophils % 77.6; Platelet Count 119 10^3/uL (130-400); RBC 4.22 10^6/uL (4.36-5.78); RDW 13.7 % (11.8-14.1); RDW-SD 49.5 fL; WBC 5.95 10^3/uL (4.4-10.8)
[2021-06-24 07:49] LABS: ALT 172 U/L (16-63); AST 99 U/L (15-37); Albumin 3.7 g/dL (3.4-5.0); Alkaline Phosphatase 436 U/L (46-116); Anion Gap 8.4 mmol/L (3-11); BUN 17 mg/dL (7-18); Bilirubin, Total 0.6 mg/dL (0.2-1.0); CO2 24.6 mmol/L (21.0-32.0); Calcium 9.2 mg/dL (8.5-10.1); Chloride 103 mmol/L (98-107); Glucose 169 mg/dL (74-106); Potassium 3.7 mmol/L (3.5-5.1); Sodium 136 mmol/L (136-145); Total Protein 7.3 g/dL (6.4-8.2)
[2021-06-27 14:37] LABS: CA 19-9 14827 U/mL (<35)
== END 2021-07-05 23:59 | disposition home or self-care (01) ==
LOC: INF 01:48
PROVIDERS: PCP Nurse Practitioner; Visit Provider Internal Medicine Hematology & Oncology
DX: Z45.2 Encounter for adjustment and management of vascular access device (principal); C25.0 Malignant neoplasm of head of pancreas
CPT/HCPCS: 36591; 80053; 85025; 86301

== ENCOUNTER 2021-07-29 01:05 | Outpatient (RCR) | payer MEDICAID, SELFPAY ==
[2021-07-15 08:45] LABS: Abs Immature Grans 0.03 10^3/uL (0.0-0.06); Absolute Basophil Count 0.02 10^3/uL (0.0-0.2); Absolute Eosinophil Count 0.05 10^3/uL (0.0-0.7); Absolute Lymphocyte Count 0.68 10^3/uL (1.2-3.4); Absolute Monocyte Count 0.67 10^3/uL (0.1-0.8); Basophils % 0.2; Eosinophils % 0.6; HCT 41.5 % (40.0-50.0); HGB 14.5 g/dL (13.5-17.5); Immature Grans % 0.4; Lymphocytes % 8.1; MCH 34.4 pg (27.0-33.0); MCHC 34.9 % (32.0-36.0); MCV 98 fL (80-95); MPV 11.2 fL (8.0-11.0); Neutrophils % 82.7; Platelet Count 162 10^3/uL (130-400); RBC 4.22 10^6/uL (4.36-5.78); RDW 13.9 % (11.8-14.1); RDW-SD 50.2 fL; WBC 8.35 10^3/uL (4.4-10.8)
[2021-07-15] MEDS: Normal Saline Flush 10 ML SYR IVP (09:06)
[2021-07-15 09:10] LABS: ALT 170 U/L (16-63); AST 117 U/L (15-37); Albumin 3.5 g/dL (3.4-5.0); Alkaline Phosphatase 635 U/L (46-116); Anion Gap 10.6 mmol/L (3-11); BUN 25 mg/dL (7-18); CO2 25.4 mmol/L (21.0-32.0); Calcium 9.7 mg/dL (8.5-10.1); Chloride 98 mmol/L (98-107); Glucose 241 mg/dL (74-106); Potassium 4.1 mmol/L (3.5-5.1); Sodium 134 mmol/L (136-145); Total Protein 7.2 g/dL (6.4-8.2)
[2021-07-15 09:15] LABS: Magnesium 2.2 mg/dL (1.8-2.4)
[2021-07-22] MEDS: Normal Saline Flush 10 ML SYR IVP (07:45)
[2021-07-22 08:29] LABS: Abs Immature Grans 0.03 10^3/uL (0.0-0.06); Absolute Basophil Count 0.01 10^3/uL (0.0-0.2); Absolute Eosinophil Count 0.08 10^3/uL (0.0-0.7); Absolute Lymphocyte Count 0.69 10^3/uL (1.2-3.4); Absolute Monocyte Count 0.31 10^3/uL (0.1-0.8); Absolute Neutrophil Count 2.39 10^3/uL (1.2-6.7); Basophils % 0.3; Eosinophils % 2.3; HCT 32.1 % (40.0-50.0); HGB 10.9 g/dL (13.5-17.5); Immature Grans % 0.9; Lymphocytes % 19.7; MCH 34.1 pg (27.0-33.0); MCV 100 fL (80-95); MPV 11.7 fL (8.0-11.0); Monocytes % 8.8; RDW 13.5 % (11.8-14.1); RDW-SD 49.9 fL; WBC 3.51 10^3/uL (4.4-10.8)
[2021-07-22 08:43] LABS: ALT 134 U/L (16-63); AST 96 U/L (15-37); Albumin 2.9 g/dL (3.4-5.0); Alkaline Phosphatase 808 U/L (46-116); Anion Gap 8.6 mmol/L (3-11); BUN 18 mg/dL (7-18); CO2 27.4 mmol/L (21.0-32.0); CREATININE 0.8 mg/dL (0.70-1.30); Calcium 9.5 mg/dL (8.5-10.1); Chloride 107 mmol/L (98-107); Glucose 133 mg/dL (74-106); Potassium 3.8 mmol/L (3.5-5.1); Sodium 143 mmol/L (136-145); Total Protein 6.5 g/dL (6.4-8.2)
[2021-07-22 09:08] LABS: Platelet Count 70 10^3/uL (130-400)
[2021-07-29 08:20] LABS: Abs Immature Grans 0.02 10^3/uL (0.0-0.06); Absolute Basophil Count 0.03 10^3/uL (0.0-0.2); Absolute Eosinophil Count 0.09 10^3/uL (0.0-0.7); Absolute Lymphocyte Count 0.55 10^3/uL (1.2-3.4); Absolute Monocyte Count 0.57 10^3/uL (0.1-0.8); Absolute Neutrophil Count 4.57 10^3/uL (1.2-6.7); Basophils % 0.5; Eosinophils % 1.5; HCT 37.4 % (40.0-50.0); HGB 12.1 g/dL (13.5-17.5); Immature Grans % 0.3; Lymphocytes % 9.4; MCH 33.6 pg (27.0-33.0); MCHC 32.4 % (32.0-36.0); MCV 104 fL (80-95); MPV 11.4 fL (8.0-11.0); Monocytes % 9.8; Neutrophils % 78.5; Platelet Count 211 10^3/uL (130-400); RDW 15.1 % (11.8-14.1); RDW-SD 57.8 fL; WBC 5.83 10^3/uL (4.4-10.8)
[2021-07-29 08:31] LABS: ALT 73 U/L (16-63); AST 56 U/L (15-37); Albumin 2.4 g/dL (3.4-5.0); Alkaline Phosphatase 566 U/L (46-116); Anion Gap 8.8 mmol/L (3-11); BUN 16 mg/dL (7-18); Bilirubin, Total 0.6 mg/dL (0.2-1.0); CO2 23.2 mmol/L (21.0-32.0); CREATININE 0.7 mg/dL (0.70-1.30); Calcium 7.2 mg/dL (8.5-10.1); Chloride 110 mmol/L (98-107); Glucose 152 mg/dL (74-106); Magnesium 1.7 mg/dL (1.8-2.4); Sodium 142 mmol/L (136-145); Total Protein 5.1 g/dL (6.4-8.2)
== END 2021-08-04 23:59 | disposition home or self-care (01) ==
LOC: INF 01:05
PROVIDERS: PCP Nurse Practitioner; Visit Provider Internal Medicine Hematology & Oncology
DX: Z45.2 Encounter for adjustment and management of vascular access device (principal); E83.42 Hypomagnesemia; C25.0 Malignant neoplasm of head of pancreas
CPT/HCPCS: 36591; 80053; 83735; 85025; 86301

== ENCOUNTER 2021-08-26 01:38 | Outpatient (RCR) | payer MEDICAID, SELFPAY ==
[2021-08-12 10:59] LABS: Abs Immature Grans 0.03 10^3/uL (0.0-0.06); Absolute Basophil Count 0.02 10^3/uL (0.0-0.2); Absolute Eosinophil Count 0.05 10^3/uL (0.0-0.7); Absolute Lymphocyte Count 0.63 10^3/uL (1.2-3.4); Absolute Neutrophil Count 5.48 10^3/uL (1.2-6.7); Basophils % 0.3; Eosinophils % 0.7; HCT 38.1 % (40.0-50.0); HGB 12.1 g/dL (13.5-17.5); Immature Grans % 0.4; Lymphocytes % 9.4; MCH 33.2 pg (27.0-33.0); MCHC 31.8 % (32.0-36.0); MCV 104 fL (80-95); MPV 10.9 fL (8.0-11.0); Monocytes % 7.5; Neutrophils % 81.7; Platelet Count 179 10^3/uL (130-400); RBC 3.65 10^6/uL (4.36-5.78); RDW 15.3 % (11.8-14.1); RDW-SD 58.8 fL; WBC 6.71 10^3/uL (4.4-10.8)
[2021-08-12 11:14] LABS: ALT 78 U/L (16-63); AST 54 U/L (15-37); Albumin 3.2 g/dL (3.4-5.0); Alkaline Phosphatase 642 U/L (46-116); Anion Gap 8.7 mmol/L (3-11); BUN 21 mg/dL (7-18); Bilirubin, Total 0.5 mg/dL (0.2-1.0); CO2 26.3 mmol/L (21.0-32.0); CREATININE 0.9 mg/dL (0.70-1.30); Chloride 106 mmol/L (98-107); Glucose 156 mg/dL (74-106); Magnesium 1.9 mg/dL (1.8-2.4); Sodium 141 mmol/L (136-145); Total Protein 6.6 g/dL (6.4-8.2)
[2021-08-12] MEDS: Normal Saline Flush 10 ML SYR IVP (11:14)
[2021-08-15 16:16] LABS: CA 19-9 21190 U/mL (<35)
[2021-08-26] MEDS: Normal Saline Flush 10 ML SYR IVP (12:15)
[2021-08-26 12:37] LABS: Abs Immature Grans 0.04 10^3/uL (0.0-0.06); Absolute Basophil Count 0.03 10^3/uL (0.0-0.2); Absolute Eosinophil Count 0.08 10^3/uL (0.0-0.7); Absolute Lymphocyte Count 0.91 10^3/uL (1.2-3.4); Absolute Monocyte Count 0.71 10^3/uL (0.1-0.8); Absolute Neutrophil Count 6.37 10^3/uL (1.2-6.7); Basophils % 0.4; HCT 37.9 % (40.0-50.0); HGB 12.4 g/dL (13.5-17.5); Immature Grans % 0.5; Lymphocytes % 11.2; MCH 33.5 pg (27.0-33.0); MCHC 32.7 % (32.0-36.0); MCV 102 fL (80-95); MPV 10.6 fL (8.0-11.0); Monocytes % 8.7; Neutrophils % 78.2; Platelet Count 179 10^3/uL (130-400); RDW 15.8 % (11.8-14.1); RDW-SD 59.5 fL; WBC 8.14 10^3/uL (4.4-10.8)
[2021-08-26 12:54] LABS: ALT 79 U/L (16-63); AST 55 U/L (15-37); Albumin 3.3 g/dL (3.4-5.0); Alkaline Phosphatase 529 U/L (46-116); Anion Gap 8.7 mmol/L (3-11); BUN 18 mg/dL (7-18); Bilirubin, Total 0.4 mg/dL (0.2-1.0); CO2 26.3 mmol/L (21.0-32.0); CREATININE 0.8 mg/dL (0.70-1.30); Calcium 9.4 mg/dL (8.5-10.1); Chloride 107 mmol/L (98-107); Glucose 96 mg/dL (74-106); Magnesium 2.1 mg/dL (1.8-2.4); Potassium 3.9 mmol/L (3.5-5.1); Sodium 142 mmol/L (136-145); Total Protein 6.7 g/dL (6.4-8.2)
[2021-08-29 13:32] LABS: CA 19-9 20250 U/mL (<35)
== END 2021-09-04 23:59 | disposition home or self-care (01) ==
LOC: INF 01:38
PROVIDERS: PCP Nurse Practitioner; Visit Provider Internal Medicine Hematology & Oncology
DX: E83.42 Hypomagnesemia (principal); Z45.2 Encounter for adjustment and management of vascular access device; C25.0 Malignant neoplasm of head of pancreas
CPT/HCPCS: 36591; 80053; 83735; 85025; 86301

== ENCOUNTER → 2021-09-08 02:22 | Outpatient (CLI) | payer MEDICAID, SELFPAY ==
[2021-09-08] MEDS: Barium Sulfate 2% W/V-Creamy Vanilla Smoothie 450 ML BTL 900 ML PO (08:40)
--- NOTE | 2021-09-08 10:00 | DI.CT_ITS ---
Exam(s) CT CHEST/ABD/PEL W EXAM: CT CHEST/ABD/PEL W CLINICAL HISTORY: PANCREATIC CA WITH METS TO LIVER, C25.9, 78.7; RESTAGING. TECHNIQUE: Imaging Protocol: Axial computed tomography images with coronal and sagittal reformatted images were created and reviewed CONTRAST MATERIAL: Intravenous: Omnipaque 350 Contrast volume:100 ml Oral: yes / COMPARISON: CT CT CHEST/ABD/PEL W from 05/05/2021 FINDINGS: CHEST: A port is again noted over the right chest with tip in the junction of the SVC and right atrium. The re are mild coronary artery calcifications. The heart size is normal. There are no pleural or peric ardial effusions or evidence of adenopathy. The thyroid is unremarkable. No pulmonary nodules or in filtrates are seen. There is no bronchiectasis or mucus plugging. There are no significant underlyi ng emphysematous or fibrotic changes. There are few scattered sclerotic foci in the spine, shoulders and ribs. ABDOMEN and PELVIS: There is now a moderate quantity of ascites throughout the abdomen and pelvis is well as diffuse body wall edema. The liver now has a somewhat nodular contour. There has been mild interval increase in size of the liver metastases. The gallbladder is contracted. The previously noted mass at the infe rior pancreatic head is not definitely visualized on the current study. There is again noted to be a trophy of the tail of the pancreas and dilatation of the pancreatic duct. multiple collateral vessels are seen around in the region of the pancreatic head. There is no dilatation of the hepatic ducts. The vasculature appears patent. Stones are again noted in the left kidney. A stone is now seen in the left renal pelvis. There is no hydronephrosis. The nephrograms are symmetric. The adrenals and spleen as well as urinary bladder are unremarkable. There is an increased quantity of stool. Bowel somewhat difficult to evaluate due to surrounding ascites and lack of intra-abdominal fat. The bone s show multiple sclerotic foci in the lumbar spine, sacrum, pelvis and bilateral proximal femurs. Th e findings appear to have progressed from the previous exam. IMPRESSION: Interval increase in size and number of bony metastases in the chest abdomen and pelvis.. New ascites. Increase in size of liver metastases. RADIATION DOSE DELIVERED: 1,001.58mGy.cm Total DLP DATA REPOSITORY: All CT scans at this facility are submitted to the National Radiology Data Registry (NRDR) Dose Index Registry (DIR) with the [employer] (ACR). RADIATION OPTIMIZATION: All CT scans at this facility use at least one of these dose optimization te chniques: automated exposure control; mA and/or kV adjustment per patient size (includes targeted exa ms where dose is matched to clinical indication); or iterative reconstruction.
[2021-09-08] MEDS: Omnipaque 350 MG/ML 100 ML BTL IJ (11:01)
== END ==
PROVIDERS: PCP Nurse Practitioner; Visit Provider Internal Medicine Hematology & Oncology
DX: C25.0 Malignant neoplasm of head of pancreas (principal); C78.7 Secondary malignant neoplasm of liver and intrahepatic bile duct
CPT/HCPCS: 74177; 71260; J3490

== ENCOUNTER → 2021-09-12 03:02 | Outpatient (CLI) | payer MEDICAID, SELFPAY ==
--- NOTE | 2021-09-12 | DI.RAD_ITS ---
Exam(s) XR HIP PELVIS ADULT BL EXAM: XR HIP PELVIS ADULT BL CLINICAL HISTORY: PANCREATIC CA, BONE METS,C79.51,WT BEARING EVAL FOR FX RISK. TECHNIQUE: 2D digital imaging was performed. COMPARISON: CT CT CHEST/ABD/PEL W from 09/08/2021 FINDINGS: Five views No evidence of pelvic nor hip fracture. No obvious degenerative changes in the hips. There are mult iple subtle sclerotic densities in the bones of pelvis suspicious for osseous metastatic disease. Th kim are all blastic. Advanced facet arthropathy noted at L5-S1 level IMPRESSION: DATA REPOSITORY: RADIATION DOSE DELIVERED:
--- NOTE | 2021-09-12 | DI.RAD_ITS ---
Exam(s) XR FEMUR RT EXAM: XR FEMUR RT CLINICAL HISTORY: PANCREATIC CA, BONE METS, C79.51,WT BEARING EVALUATE FOR FX RISK. TECHNIQUE: 2D digital imaging was performed. COMPARISON: CR XR FEMUR LT from 09/12/2021 FINDINGS: Two views No evidence right hip nor right femur fracture. Small sclerotic densities in femoral may represent s clerotic metastatic lesions seen elsewhere in the osseous. No lytic osseous lesions evident IMPRESSION: DATA REPOSITORY: RADIATION DOSE DELIVERED:
--- NOTE | 2021-09-12 | DI.RAD_ITS ---
Exam(s) XR FEMUR LT EXAM: XR FEMUR LT CLINICAL HISTORY: PANCREATIC CA,BONE METS, C79.51,WT BEARING EVAL FOR FX RISK. TECHNIQUE: 2D digital imaging was performed. COMPARISON: No exams were available for comparison FINDINGS: Two views No evidence left femur fracture. No lytic lesions but there are sclerotic lesions seen in the intert rochanteric region as well as the ipsilateral ischial tuberosity left hemipelvis. IMPRESSION: DATA REPOSITORY: RADIATION DOSE DELIVERED:
== END ==
PROVIDERS: PCP Nurse Practitioner; Visit Provider Internal Medicine Hematology & Oncology
DX: M47.817 Spondylosis without myelopathy or radiculopathy, lumbosacral region (principal); C79.51 Secondary malignant neoplasm of bone
CPT/HCPCS: 73521; 73552

== ENCOUNTER 2021-09-23 00:45 | Outpatient (RCR) | payer MEDICAID, SELFPAY ==
[2021-09-08] MEDS: Normal Saline Flush 10 ML SYR IVP (08:09)
[2021-09-08 08:24] LABS: Abs Immature Grans 0.05 10^3/uL (0.0-0.06); Absolute Basophil Count 0.01 10^3/uL (0.0-0.2); Absolute Eosinophil Count 0.09 10^3/uL (0.0-0.7); Absolute Lymphocyte Count 0.74 10^3/uL (1.2-3.4); Absolute Monocyte Count 0.59 10^3/uL (0.1-0.8); Absolute Neutrophil Count 4.61 10^3/uL (1.2-6.7); Basophils % 0.2; Eosinophils % 1.5; HCT 36.2 % (40.0-50.0); HGB 11.5 g/dL (13.5-17.5); Immature Grans % 0.8; Lymphocytes % 12.2; MCHC 31.8 % (32.0-36.0); MCV 104 fL (80-95); Monocytes % 9.7; Neutrophils % 75.6; Platelet Count 143 10^3/uL (130-400); RBC 3.48 10^6/uL (4.36-5.78); RDW 16.5 % (11.8-14.1); RDW-SD 62.8 fL; WBC 6.09 10^3/uL (4.4-10.8)
[2021-09-08 09:03] LABS: ALT 90 U/L (16-63); AST 53 U/L (15-37); Albumin 3.4 g/dL (3.4-5.0); Alkaline Phosphatase 482 U/L (46-116); Anion Gap 7.9 mmol/L (3-11); BUN 19 mg/dL (7-18); Bilirubin, Total 0.5 mg/dL (0.2-1.0); CO2 26.1 mmol/L (21.0-32.0); CREATININE 0.7 mg/dL (0.70-1.30); Calcium 9.1 mg/dL (8.5-10.1); Chloride 104 mmol/L (98-107); Glucose 100 mg/dL (74-106); Potassium 3.8 mmol/L (3.5-5.1); Sodium 138 mmol/L (136-145); Total Protein 6.9 g/dL (6.4-8.2)
[2021-09-09 12:28] LABS: CA 19-9 19424 U/mL (<35)
[2021-09-23] MEDS: Normal Saline Flush 10 ML SYR IVP (10:49)
[2021-09-23 11:03] LABS: Abs Immature Grans 0.03 10^3/uL (0.0-0.06); Absolute Basophil Count 0.02 10^3/uL (0.0-0.2); Absolute Eosinophil Count 0.08 10^3/uL (0.0-0.7); Absolute Lymphocyte Count 0.69 10^3/uL (1.2-3.4); Absolute Monocyte Count 0.56 10^3/uL (0.1-0.8); Absolute Neutrophil Count 5.45 10^3/uL (1.2-6.7); Basophils % 0.3; Eosinophils % 1.2; HCT 36.4 % (40.0-50.0); HGB 12.1 g/dL (13.5-17.5); Immature Grans % 0.4; Lymphocytes % 10.1; MCH 33.2 pg (27.0-33.0); MCHC 33.2 % (32.0-36.0); MCV 100 fL (80-95); MPV 11.2 fL (8.0-11.0); Monocytes % 8.2; Neutrophils % 79.8; Platelet Count 159 10^3/uL (130-400); RBC 3.65 10^6/uL (4.36-5.78); RDW 16.7 % (11.8-14.1); RDW-SD 60.7 fL; WBC 6.83 10^3/uL (4.4-10.8)
[2021-09-23 11:25] LABS: ALT 78 U/L (16-63); AST 53 U/L (15-37); Albumin 3.5 g/dL (3.4-5.0); Alkaline Phosphatase 426 U/L (46-116); Anion Gap 10.2 mmol/L (3-11); BUN 14 mg/dL (7-18); Bilirubin, Total 0.5 mg/dL (0.2-1.0); CO2 27.8 mmol/L (21.0-32.0); CREATININE 0.7 mg/dL (0.70-1.30); Calcium 9.5 mg/dL (8.5-10.1); Chloride 102 mmol/L (98-107); Glucose 135 mg/dL (74-106); Potassium 3.9 mmol/L (3.5-5.1); Sodium 140 mmol/L (136-145); Total Protein 6.9 g/dL (6.4-8.2)
[2021-09-26 14:25] LABS: CA 19-9 29066 U/mL (<35)
== END 2021-10-05 23:59 | disposition home or self-care (01) ==
LOC: INF 00:45
PROVIDERS: PCP Nurse Practitioner; Visit Provider Internal Medicine Hematology & Oncology
DX: Z45.2 Encounter for adjustment and management of vascular access device (principal); C25.0 Malignant neoplasm of head of pancreas
CPT/HCPCS: 36591; 80053; 85025; 86301

== ENCOUNTER → 2021-10-14 15:05 | Outpatient (CLI) | payer MEDICAID, SELFPAY ==
--- NOTE | 2021-10-14 | DI.US_ITS ---
Exam(s) US LOWER EXTREMITY VENOUS RT EXAM: US LOWER EXTREMITY VENOUS RT CLINICAL HISTORY: RLE PAIN, M79.604, FROM POPLITEAL FOSSA DOWN, ? DVT TECHNIQUE: Right lower extremity venous ultrasound performed using grayscale, color-flow, and spectr al Doppler analysis. COMPARISON: No exams were available for comparison FINDINGS: The right common femoral, femoral and popliteal veins demonstrate normal compressibility, augmentatio n, and color Doppler. The posterior tibial veins and peroneal veins are patent. The saphenofemoral j unction is unremarkable. There is no evidence of a Rowe cyst. The soft tissues are unremarkable. IMPRESSION: No evidence of a right lower extremity DVT. DATA REPOSITORY:
== END ==
PROVIDERS: PCP Nurse Practitioner; Visit Provider Internal Medicine Hematology & Oncology
DX: M79.604 Pain in right leg (principal)
CPT/HCPCS: 93971

== ENCOUNTER → 2021-10-21 00:25 | Outpatient (CLI) | payer MEDICAID, SELFPAY ==
--- NOTE | 2021-10-21 11:00 | DI.CT_ITS ---
Exam(s) CT CHEST/ABD/PEL W EXAM: CT CHEST/ABD/PEL W CLINICAL HISTORY: PANCREATIC CA, METS TO LIVER, ON CHEMO, RESTAGING, C25.9, C78.7. TECHNIQUE: Imaging Protocol: Axial computed tomography images with coronal and sagittal reformatted images were created and reviewed CONTRAST MATERIAL: Intravenous: Omnipaque 350 Contrast volume:100 ml Oral: None COMPARISON: CT CT CHEST/ABD/PEL W from 09/08/2021 FINDINGS: CHEST: LUNGS: There are no confluent infiltrates nor pleural effusions and there are no metastatic appearing pulmonary nodules. No significant focal findings in the trachea and mainstem bronchi. MEDIASTINUM: There is no hilar nor mediastinal adenopathy. Visualized thyroid unremarkable.No supracl avicular adenopathy. No axillary adenopathy. CARDIAC: Heart size is normal. There is no pericardial effusion.Caliber of the thoracic aorta is wit hin normal limits. Distal tip of the Port-A-Cath is at SVC RA junction. OSSEOUS: Nonexpansile sclerotic lesion again noted in the right 8th rib, posterolaterally. Sclerotic bone density in left side of upper thoracic vertebra is unchanged as is a small sclerotic bone densi ty in right transverse process of a mid thoracic vertebra. Also unchanged sclerotic densities in the lumbar vertebrae.. ABDOMEN: There is an increasing amount of ascites throughout the abdomen and pelvis. LIVER: Multiple metastatic lesions throughout both hepatic lobes are again noted, without significant improvement. Largest of these is in the left hepatic lobe and measures approximately 4 x 3.6 cm, sl ightly larger than previous. GALLBLADDER/BILIARY: No obvious acute gallbladder pathology. CBD is not dilated. PANCREAS: Dilated pancreatic duct in the body and tail again noted (5-6 millimeters). Abnormal densi ty region the pancreas at the bifurcation level of the celiac are artery into the splenic and common hepatic arteries again noted. Multiple vessels are seen around the hypodense area in the pancreatic head appears larger than previous this this probably neoplasm. This area measures approximately 2 by 1.5 cm. SPLEEN: Spleen is not enlarged. There are no intrasplenic lesions. The splenic vein and portal vein is confluent/upper superior mesenteric vein are occluded at the mid pancreatic level and there are nu merous collateral vessels exhibiting cavernous transformation. ADRENALS: There are no significant adrenal masses. KIDNEYS: Right kidney unremarkable. Previously described calculus in left kidney is now at the urete ropelvic junction with mild dilatation of the collecting system above this level. Left ureter below this level exhibits normal size. There are no calculi in the urinary bladder.. No solid renal pallavi s nor cysts. ABDOMINAL AORTA: Abdominal aorta is not enlarged. LYMPH NODES: No increasing adenopathy ABDOMINAL WALL: Cachectic. No obvious hernia. Also no inguinal hernia. GI: There is no evidence of bowel obstruction. PELVIS: LYMPH NODES: There is no intrapelvic nor inguinal adenopathy. GI: No evidence of appendicitis.No evidence of sigmoid diverticulitis. URINARY BLADDER: No calculi nor masses evident REPRODUCTIVE: Calcified prostate but not enlarged. OSSEOUS: Multiple sclerotic metastatic nonexpansile lesions again noted in the vertebral bodies and b ones of the pelvis. IMPRESSION: 1. Further deterioration with significant increase in amount of ascites in the abdomen pelvis in slig ht further increase in size and number of metastatic lesions in the liver. Pancreatic mass as descri bed above and there is vascular encasement of the proximal branches of the celiac artery as well as t he upper superior mesenteric vein and portal venous confluence. 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 Intrahepatic portal veins are also patent. 2. There is a 1 cm calculus in the upper left ureter (ureteropelvic junction level) which has migrate d to this level from the left renal pelvis. There is, however, only minimal dilatation of the renal pelvis above this level. Opposite-right kidney appears unremarkable 3. No splenomegaly nor splenic lesions evident. No obvious adrenal masses. No bowel obstruction. 4. Stable appearance of multiple nonexpansile metastatic sclerotic bone lesions in the skeleton RADIATION DOSE DELIVERED: 1,078.17mGy.cm Total DLP DATA REPOSITORY: All CT scans at this facility are submitted to the National Radiology Data Registry (NRDR) Dose Index Registry (DIR) with the [employer] ([employer]). RADIATION OPTIMIZATION: All CT scans at this facility use at least one of these dose optimization te chniques: automated exposure control; mA and/or kV adjustment per patient size (includes targeted exa ms where dose is matched to clinical indication); or iterative reconstruction.
[2021-10-21] MEDS: Omnipaque 350 MG/ML 100 ML BTL IV (11:19)
[2021-10-21] MEDS: Normal Saline Flush 10 ML SYR IVP (11:20)
[2021-10-21] MEDS: Breeza Beverage 473 ML BTL PO (11:21)
== END ==
PROVIDERS: PCP Nurse Practitioner; Visit Provider Internal Medicine Hematology & Oncology
DX: C78.7 Secondary malignant neoplasm of liver and intrahepatic bile duct (principal); C25.9 Malignant neoplasm of pancreas, unspecified; R18.8 Other ascites; N20.1 Calculus of ureter; M89.9 Disorder of bone, unspecified
CPT/HCPCS: 74177; 71260; J3490

== ENCOUNTER 2021-10-28 00:35 | Outpatient (RCR) | payer MEDICAID, SELFPAY ==
[2021-10-14 09:10] LABS: Abs Immature Grans 0.03 10^3/uL (0.0-0.06); Absolute Basophil Count 0.03 10^3/uL (0.0-0.2); Absolute Eosinophil Count 0.04 10^3/uL (0.0-0.7); Absolute Neutrophil Count 6.45 10^3/uL (1.2-6.7); Basophils % 0.4; Eosinophils % 0.5; HCT 39.5 % (40.0-50.0); HGB 13.2 g/dL (13.5-17.5); Immature Grans % 0.4; Lymphocytes % 6.5; MCH 33.2 pg (27.0-33.0); MCHC 33.4 % (32.0-36.0); MCV 99 fL (80-95); MPV 10.3 fL (8.0-11.0); Neutrophils % 83.2; Platelet Count 220 10^3/uL (130-400); RBC 3.98 10^6/uL (4.36-5.78); RDW 16.9 % (11.8-14.1); RDW-SD 62.5 fL; WBC 7.75 10^3/uL (4.4-10.8)
[2021-10-14 09:30] LABS: ALT 97 U/L (16-63); AST 78 U/L (15-37); Albumin 3.3 g/dL (3.4-5.0); Alkaline Phosphatase 543 U/L (46-116); Anion Gap 10.3 mmol/L (3-11); BUN 16 mg/dL (7-18); Bilirubin, Total 1.2 mg/dL (0.2-1.0); CO2 27.7 mmol/L (21.0-32.0); CREATININE 0.8 mg/dL (0.70-1.30); Calcium 8.6 mg/dL (8.5-10.1); Chloride 101 mmol/L (98-107); Estimated GFR 103.87 (mL/min/1.73m2); Glucose 185 mg/dL (74-106); Potassium 3.8 mmol/L (3.5-5.1); Sodium 139 mmol/L (136-145)
[2021-10-14] MEDS: Normal Saline Flush 10 ML SYR IVP (09:30)
[2021-10-17 16:21] LABS: CA 19-9 63178 U/mL (<35)
[2021-10-21] MEDS: Normal Saline Flush 10 ML SYR IVP (09:12)
[2021-10-21] MEDS: Heparin 500 UNITS/5 ML SYRINGE IV (09:12)
[2021-10-28] MEDS: Normal Saline Flush 10 ML SYR IVP (09:45)
[2021-10-28 09:54] LABS: Abs Immature Grans 0.03 10^3/uL (0.0-0.06); Absolute Basophil Count 0.03 10^3/uL (0.0-0.2); Absolute Eosinophil Count 0.05 10^3/uL (0.0-0.7); Absolute Lymphocyte Count 0.55 10^3/uL (1.2-3.4); Absolute Monocyte Count 0.53 10^3/uL (0.1-0.8); Absolute Neutrophil Count 8.34 10^3/uL (1.2-6.7); Basophils % 0.3; Eosinophils % 0.5; HCT 40.2 % (40.0-50.0); HGB 12.8 g/dL (13.5-17.5); Immature Grans % 0.3; Lymphocytes % 5.8; MCH 32.1 pg (27.0-33.0); MCHC 31.8 % (32.0-36.0); MCV 101 fL (80-95); MPV 11.9 fL (8.0-11.0); Monocytes % 5.6; Neutrophils % 87.5; Platelet Count 266 10^3/uL (130-400); RBC 3.99 10^6/uL (4.36-5.78); RDW 16.7 % (11.8-14.1); RDW-SD 61.7 fL; WBC 9.53 10^3/uL (4.4-10.8)
[2021-10-28 10:07] LABS: ALT 59 U/L (16-63); AST 39 U/L (15-37); Albumin 3.2 g/dL (3.4-5.0); Alkaline Phosphatase 623 U/L (46-116); Anion Gap 8.6 mmol/L (3-11); BUN 15 mg/dL (7-18); CO2 27.4 mmol/L (21.0-32.0); CREATININE 0.9 mg/dL (0.70-1.30); Calcium 9.6 mg/dL (8.5-10.1); Chloride 100 mmol/L (98-107); Estimated GFR 100.24 (mL/min/1.73m2); Glucose 244 mg/dL (74-106); Potassium 4.2 mmol/L (3.5-5.1); Sodium 136 mmol/L (136-145); Total Protein 7.1 g/dL (6.4-8.2)
== END 2021-11-04 23:59 | disposition home or self-care (01) ==
LOC: INF 00:35
PROVIDERS: PCP Nurse Practitioner; Visit Provider Internal Medicine Hematology & Oncology
DX: C25.0 Malignant neoplasm of head of pancreas (principal); Z45.2 Encounter for adjustment and management of vascular access device
CPT/HCPCS: 36591; 80053; 96523; 85025; 86301

== ENCOUNTER 2021-11-15 12:56 | Observation (INO) | payer MEDICAID, SELFPAY ==
[2021-11-15] VITALS (27 sets, daily range): BP systolic 112–126; BP diastolic 76–95; PULSE 103–137; RESP 22; TEMP 36.8–36.9; O2SAT 93–99
[2021-11-15 13:49] LABS: Absolute Basophil Count 0.03 10^3/uL (0.0-0.2); Absolute Eosinophil Count 0.02 10^3/uL (0.0-0.7); Absolute Lymphocyte Count 0.47 10^3/uL (1.2-3.4); Absolute Neutrophil Count 15.15 10^3/uL (1.2-6.7); Basophils % 0.2; Eosinophils % 0.1; HCT 30.4 % (40.0-50.0); Immature Grans % 0.6; Lymphocytes % 2.8; MCH 32.3 pg (27.0-33.0); MCHC 32.9 % (32.0-36.0); MCV 98 fL (80-95); MPV 11.4 fL (8.0-11.0); Monocytes % 5.4; Neutrophils % 90.9; Platelet Count 260 10^3/uL (130-400); RDW 16.3 % (11.8-14.1); RDW-SD 58.2 fL; WBC 16.67 10^3/uL (4.4-10.8)
[2021-11-15] MEDS: HYDROmorphone 2 MG/ML SYR 0.5 MG IVP (13:57)
[2021-11-15] MEDS: HYDROmorphone 2 MG/ML SYR ×2 (13:58→18:41)
[2021-11-15 14:13] LABS: ALT 147 U/L (16-63); AST 222 U/L (15-37); Albumin 2.7 g/dL (3.4-5.0); Alkaline Phosphatase 982 U/L (46-116); Anion Gap 6.6 mmol/L (3-11); BUN 48 mg/dL (7-18); Bilirubin, Total 2.8 mg/dL (0.2-1.0); CO2 29.4 mmol/L (21.0-32.0); CREATININE 0.7 mg/dL (0.70-1.30); Calcium 9.1 mg/dL (8.5-10.1); Chloride 101 mmol/L (98-107); Estimated GFR 108.14 (mL/min/1.73m2); Glucose 123 mg/dL (74-106); Lipase 35 U/L (73-393); Sodium 137 mmol/L (136-145); Total Protein 6.3 g/dL (6.4-8.2)
[2021-11-15 14:20] LABS: INR 1.4 (0.9-1.1); Prothrombin Time 13.5 sec (9.3-11.0)
--- NOTE | 2021-11-15 15:29 | SCONE_ITS ---
Date of service: 11/15/21 Time of Service: 15:29 Assessment and Plan Assessment and plan (1) Abdominal ascites: Status: Acute Assessment and plan: Mr. Peña is a pleasant 56 year old with abdominal pain and worsening ascites. He is supposed to go on hospice tomorrow. I was asked to see the patient to prform a parasenthesis. The patient also has a wbc count that is elevated. ? infected e. 4.5 litters was removed. The fluid looked clear and light yellow. Discussed case with Hospice for possible admission for IV antibiotics. Because he is not yet a patient with them they have asked that we contact the hospitalist. This has been discussed with Dr. Abel. (2) Pancreatic cancer metastasized to liver: Status: Acute History of Present Illness Narrative: Mr Peña is a pleasant 56 year old male who has been battling Pancreatic cancer for the last year. 2 weeks ago he had his last chemotherapy treatment. He is now going to be on hospice care. The plan was for admission tomorrow. He comes to the ER today with worsening abdominal pain and ascites. He has no fevers that h e is aware of. He just doesnt feel well. He has some mild SOB and complains of abdominal pain. He describes the pain as prssure. Consults Consult date: 11/15/21 Requesting physician: Gregorio Abel Review of Systems Constitutional Constitutional: Reports fatigue, Denies fever(s), Denies headache(s), Denies night sweats and Reports poor appetite Eyes Eyes: Denies change in vision ENT Ears, Nose, Mouth, and Throat: Denies dysphagia, Denies headache(s) and Denies hoarseness Cardiovascular Cardiovascular: Denies chest pain, Denies chest pain at rest, Denies irregular heart rhythm, Denies palpitations and Reports dyspnea Respiratory Respiratory: Denies cough and Reports dyspnea Gastrointestinal Gastrointestinal: Reports system reviewed and no additional complaints, except as documented and Denies dysphagia Genitourinary Genitourinary: Reports system reviewed and no additional complaints, except as documented Musculoskeletal Musculoskeletal: Reports system reviewed and no additional complaints, except as documented Integumentary/Breasts Skin/Breast: Reports system reviewed and no additional complaints, except as documented Neurologic Neurologic: Reports system reviewed and no additional complaints, except as documented and Denies headache(s) Psychiatric Psychiatric: Reports system reviewed and no additional complaints, except as documented Endocrine Endocrine: Reports system reviewed and no additional complaints, except as documented, Reports fatigue and Denies palpitations Hematologic/Lymphatic Hematologic/Lymphatic: Reports system reviewed and no additional complaints, except as documented PFSH All Active Problems (Updated 11/15/21 @ 15:49 by Reba Gallego MD) Abdominal ascites (Acute) Smoker (Acute) Cancer related pain (Acute) Hospice care patient (Acute) Pancreatic cancer metastasized to liver (Acute) mixed ductal/neuroendocrine carcinoma, 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 Postop check (Acute) Inguinal hernia of right side without obstruction or gangrene (Acute) Pre-op evaluation (Acute) Medical History Tubular adenoma Tubular adenoma of colon (04/28/16) Surgical History Colonoscopy - IV Sedation (04/28/16) History of tooth extraction Status post right inguinal hernia repair Social History Smoking/Tobacco Use Status: Current every day Tobacco Type: cigarettes Smoking risk assessment performed?: Yes Alcohol Intake: never Drug use: Daily Substance use type: marijuana Current gender identity: male Do you feel safe at home: Yes Do you feel safe in your relationship?: Yes Exam Const General: ill appearing chronically Nutritional Appearance: cachectic Orientation: alert and oriented x3 HENMT Head: normocephalic and atraumatic Resp Effort & Inspection: normal respiratory effort Auscultation: clear to auscultation bilaterally and diminished lung sounds bilaterally in the lower lung munoz Cardio Rate: regular rate Rhythm: regular rhythm GI Palpation: soft, hepatomegaly, tender and ascites General: deferred Results Last Vital Signs Temp 98.2 F 11/15/21 13:08 Pulse 137 H 11/15/21 13:08 BP 126/92 H 11/15/21 13:08 Pulse Ox 96 11/15/21 14:00 Labs Result diagrams: 11/15/21 13:35 11/15/21 13:35 Labs: Laboratory Results - last 24 hr 11/15/21 11/15/21 11/15/21 13:35 13:35 13:35 WBC 16.67 H RBC 3.10 L Hgb 10.0 L Hct 30.4 L MCV 98 H MCH 32.3 MCHC 32.9 RDW 16.3 H Plt Count 260 MPV 11.4 H Immature Gran % 0.6 Neutrophils % 90.9 Lymphocytes % 2.8 Monocytes % 5.4 Eosinophils % 0.1 Basophils % 0.2 Nucleated RBC % 0.0 Absolute Neutrophils 15.15 H Absolute Lymphocytes 0.47 L Absolute Monocytes 0.90 H Absolute Eosinophils 0.02 Absolute Basophils 0.03 PT 13.5 H INR 1.4 H Sodium 137 Potassium 5.0 Chloride 101 Carbon Dioxide 29.4 Anion Gap 6.6 BUN 48 H Creatinine 0.7 Est GFR (CKD-EPI 2020) 108.14 Glucose 123 H Calcium 9.1 Total Bilirubin 2.8 H AST 222 H ALT 147 H Alkaline Phosphatase 982 H Total Protein 6.3 L Albumin 2.7 L Lipase 35 Procedures Paracentesis Indication: possible spontaneous bacterial peritonitis Location: LLQ Local anesthetic used: lidocaine 1% (10 cc) Amount of anesthesia used (ml): 10 Bedside ultrasound used: no Preparation: sterile prep and drape Amount of fluid obtained (ml): 4,500 Fluid: clear and sent to lab for analysis Size of needle used: 14 Post procedure exam: awake, alert Patient tolerated procedure: well Complications: none Additional comments: After informed consent was obtained from the patient was placed on his gurney in a supine position. The left lower quadrant was prepped and draped in a sterile surgical fashion. 1% lidocaine was injected into the dermis and down to the fascia. A small incision was made with an 11 blade. The needle and sheath that came in the kit was slowly advanced through the subcutaneous tissue and the peritoneum into the abdomen. As soon as serous fluid was suctioned the sheath was advanced over the needle into the abdomen and the needle was removed. The sheath was then attached to suction canisters and a total of 4.5 L of serous fluid was removed without complication. Once the procedure was done the sheath was removed and a small Band-Aid was applied over the incision. The patient was slowly placed into a sitting position. Patient did not develop any dizziness. Patient did well and there were no immediate complications.
--- NOTE | 2021-11-15 15:32 | ED.GENADUL_ITS ---
Discharge Plan Disposition Patient Disposition: [facility] INPATIENT Condition: Serious Discharge Details Chief Complaint: Abd Prob Clinical Impression: Abdominal ascites Admit Date/Time: 11/15/21 15:50 Admit Provider: Shelbie Davis Attending Provider: Shelbie Davis Primary Care Provider: Risa Orellana ED Provider: Gregorio Abel Discharge Data Discharge Date/Time-TO BE ENTERED AT DEPARTURE: 11/15/21 16:27 Medical Decision Making 56 yo m with metastatic pancreatic cancer here with ascites and distended tender abdomen. Patient is afebrile but it seems warm to the touch. Patient is tachycardic, normotensive. Patient recently stopped chemotherapy with plan to transition to hospice tomorrow. Labs reviewed and leukocytosis noted. I consulted Dr. Gallego, on-call general surgeon, who evaluated the patient and performed bedside therapeutic and diagnostic paracentesis. I spoke with Dr. Gallego postprocedural, plan to initiate broad-spectrum coverage to include coverage for spontaneous bacterial peritonitis until fluid analysis available. I called and spoke with Dr. Davis, on-call hospitalist, she will admit the patient. Lab Data Lab results reviewed: Yes I reviewed the patient's lab results. Labs: 11/15/21 15:38 Paracentesis Body Fluid Culture - Pending 11/15/21 15:38 Paracentesis Gram Stain - Final Laboratory Tests Range/Units 11/15/21 11/15/21 11/15/21 13:35 13:35 13:35 WBC (4.4-10.8) 10^3/uL 16.67 H RBC (4.36-5.78) 10^6/uL 3.10 L Hgb (13.5-17.5) g/dL 10.0 L Hct (40.0-50.0) % 30.4 L MCV (80-95) fL 98 H MCH (27.0-33.0) pg 32.3 MCHC (32.0-36.0) % 32.9 RDW (11.8-14.1) % 16.3 H Plt Count (130-400) 10^3/uL 260 MPV (8.0-11.0) fL 11.4 H Immature Gran % 0.6 Neutrophils % 90.9 Lymphocytes % 2.8 Monocytes % 5.4 Eosinophils % 0.1 Basophils % 0.2 Nucleated RBC % (0.0-0.3) % 0.0 Absolute Neutrophils (1.2-6.7) 10^3/uL 15.15 H Absolute Lymphocytes (1.2-3.4) 10^3/uL 0.47 L Absolute Monocytes (0.1-0.8) 10^3/uL 0.90 H Absolute Eosinophils (0.0-0.7) 10^3/uL 0.02 Absolute Basophils (0.0-0.2) 10^3/uL 0.03 PT (9.3-11.0) sec 13.5 H INR (0.9-1.1) 1.4 H Sodium (136-145) mmol/L 137 Potassium (3.5-5.1) mmol/L 5.0 Chloride (98-107) mmol/L 101 Carbon Dioxide (21.0-32.0) mmol/L 29.4 Anion Gap (3-11) mmol/L 6.6 BUN (7-18) mg/dL 48 H Creatinine (0.70-1.30) mg/dL 0.7 Est GFR (CKD-EPI 2020) (mL/min/1.73m2) 108.14 Glucose (74-106) mg/dL 123 H Calcium (8.5-10.1) mg/dL 9.1 Total Bilirubin (0.2-1.0) mg/dL 2.8 H AST (15-37) U/L 222 H ALT (16-63) U/L 147 H Alkaline Phosphatase (46-116) U/L 982 H Total Protein (6.4-8.2) g/dL 6.3 L Albumin (3.4-5.0) g/dL 2.7 L Lipase (73-393) U/L 35 HPI General Mode of arrival: ambulatory . Date/Time Provider Initiated Documentation: 11/15/21 13:39 . Limitations to Documentation: no limitations . Information obtained by: patient . HPI Narrative: 56-year-old male with history of pancreatic cancer and extensive metastatic disease, presents with chief complaint of abdominal pain. Patient has abdominal pain and distention worsening over the past 1 to 2 weeks. Distention is significant. notes he has never been this swollen before. He has never required paracentesis. Patient is prescribed high-dose opioids and these are not helping discomfort. Chemotherapy was recently discontinued and there is plan for hospice. Related Data Home Medications Medication Instructions Recorded Confirmed apixaban 5 mg tablet (Eliquis) 1 tab DAILY 11/15/21 11/15/21 dexamethasone 4 mg tablet 1 tab DAILY 11/15/21 11/15/21 (Decadron) doxepin 3 mg tablet 1 tab DAILY 11/15/21 11/15/21 hydromorphone 8 mg tablet 1 tab Q4-5H 11/15/21 11/15/21 lacism-vbolgnpo-rvxoswk 1 cap PO DAILY 11/15/21 11/15/21 24,000-76,000-120,000 unit capsule,delayed rel (Creon) lorazepam 1 mg tablet 1 mg PO Q4H PRN PRN anxiety, 11/15/21 dyspnea, nasuea #10 tabs morphine 30 mg tablet,extended 1 tab PO PRN PRN 11/15/21 11/15/21 release morphine concentrate 100 mg/5 mL See Rx Instructions PO Q1H PRN PRN 11/15/21 11/15/21 (20 mg/mL) oral solution pain #30 mL potassium chloride 20 mEq 1 tab PO DAILY 11/15/21 11/15/21 tablet,extended release(part/cryst) prochlorperazine maleate 10 mg 1 tab PRN PRN 11/15/21 11/15/21 tablet (Compazine) Previous Rx's Medication Instructions Recorded lorazepam 1 mg tablet 1 mg PO Q4H PRN PRN anxiety, 11/15/21 dyspnea, nasuea #10 tabs morphine concentrate 100 mg/5 mL See Rx Instructions PO Q1H PRN PRN 11/15/21 (20 mg/mL) oral solution pain #30 mL Allergies Allergy/AdvReac Type Severity Reaction Status Date / Time No Known Allergies Allergy Unverified 08/18/19 14:20 General Stated Complaint: Abd Prob KATHY: 2 Review of Systems All systems reviewed & are unremarkable except as noted in HPI and below Constitutional Constitutional: Reports fever(s) Respiratory Respiratory: Denies cough Gastrointestinal Gastrointestinal: Reports as per HPI PFSH All Active Problems (Updated 11/15/21 @ 20:32 by Gregorio Abel MD) Discharge planning issues (Acute) DVT prophylaxis (Acute) Sepsis (Acute) Abdominal ascites (Acute) Smoker (Acute) Cancer related pain (Acute) Hospice care patient (Acute) Pancreatic cancer metastasized to liver (Acute) mixed ductal/neuroendocrine carcinoma, 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 Postop check (Acute) Inguinal hernia of right side without obstruction or gangrene (Acute) Pre-op evaluation (Acute) Medical History Tubular adenoma Tubular adenoma of colon (04/28/16) Surgical History Colonoscopy - IV Sedation (04/28/16) History of tooth extraction Status post right inguinal hernia repair Social History Smoking/Tobacco Use Status: Current every day Tobacco Type: cigarettes Smoking risk assessment performed?: Yes Alcohol Intake: never Drug use: Daily Substance use type: marijuana Current gender identity: male Do you feel safe at home: Yes Do you feel safe in your relationship?: Yes Exam Const General: cooperative and uncomfortable HENPA Mouth: moist mucous membranes Eyes Sclera: scleral abnormality bilaterally (icterus) Resp Auscultation: clear to auscultation bilaterally, no rales, no rhonchi and no wheezes Cardio Rhythm: regular rhythm GI Palpation: firm (distended), no guarding, no masses, tender (Diffuse) and other Skin General skin exam: jaundice Neuro General: patient alert, patient awake and tone normal Extrem General: edema Laterality: bilateral Course Vital Signs Vital signs: Vital Signs Temperature 36.8 C 11/15/21 13:08 Pulse 137 H 11/15/21 13:08 Blood Pressure 126/92 H 11/15/21 13:08 Pulse Oximetry 99 11/15/21 13:08 Temperature 36.8 C 11/15/21 13:08 Temperature Source Temporal Artery Scan 11/15/21 13:08 Pulse 137 H 11/15/21 13:08 Respiratory Effort 11/15/21 13:19 Blood Pressure 126/92 H 11/15/21 13:08 Blood Pressure Position Sitting 11/15/21 13:08 Pulse Oximetry 96 11/15/21 14:00 Oxygen Delivery Method Room Air 11/15/21 13:08 Oxygen Flow Rate 0 11/15/21 13:08 Pain Level 9 11/15/21 13:58 Lab/Test Results Lab/Test Results: 11/15/21 15:26 Paracentesis Body Fluid Culture - Pending 11/15/21 15:26 Paracentesis Gram Stain - Pending Laboratory Tests Range/Units 11/15/21 11/15/21 11/15/21 13:35 13:35 13:35 WBC (4.4-10.8) 10^3/uL 16.67 H RBC (4.36-5.78) 10^6/uL 3.10 L Hgb (13.5-17.5) g/dL 10.0 L Hct (40.0-50.0) % 30.4 L MCV (80-95) fL 98 H MCH (27.0-33.0) pg 32.3 MCHC (32.0-36.0) % 32.9 RDW (11.8-14.1) % 16.3 H Plt Count (130-400) 10^3/uL 260 MPV (8.0-11.0) fL 11.4 H Immature Gran % 0.6 Neutrophils % 90.9 Lymphocytes % 2.8 Monocytes % 5.4 Eosinophils % 0.1 Basophils % 0.2 Nucleated RBC % (0.0-0.3) % 0.0 Absolute Neutrophils (1.2-6.7) 10^3/uL 15.15 H Absolute Lymphocytes (1.2-3.4) 10^3/uL 0.47 L Absolute Monocytes (0.1-0.8) 10^3/uL 0.90 H Absolute Eosinophils (0.0-0.7) 10^3/uL 0.02 Absolute Basophils (0.0-0.2) 10^3/uL 0.03 PT (9.3-11.0) sec 13.5 H INR (0.9-1.1) 1.4 H Sodium (136-145) mmol/L 137 Potassium (3.5-5.1) mmol/L 5.0 Chloride (98-107) mmol/L 101 Carbon Dioxide (21.0-32.0) mmol/L 29.4 Anion Gap (3-11) mmol/L 6.6 BUN (7-18) mg/dL 48 H Creatinine (0.70-1.30) mg/dL 0.7 Est GFR (CKD-EPI 2021) (mL/min/1.73m2) 108.14 Glucose (74-106) mg/dL 123 H Calcium (8.5-10.1) mg/dL 9.1 Total Bilirubin (0.2-1.0) mg/dL 2.8 H AST (15-37) U/L 222 H ALT (16-63) U/L 147 H Alkaline Phosphatase (46-116) U/L 982 H Total Protein (6.4-8.2) g/dL 6.3 L Albumin (3.4-5.0) g/dL 2.7 L Lipase (73-393) U/L 35
[2021-11-15] MEDS: HYDROmorphone 2 MG/ML SYR 1 MG IVP ×2 (15:54→18:23)
[2021-11-15] MEDS: PIPERACILLIN/TAZO 4.5 GM in Normal Saline 100 ML IVPB (15:54)
[2021-11-15 16:16] LABS: Source Nasal/Nares
--- NOTE | 2021-11-15 16:16 | W.PM.PROGNOT ---
Date of Service Date of service: 11/15/21 Time of Service: 16:16 Objective Last Vital Signs Temp 36.8 C 11/15/21 13:08 Pulse 137 H 11/15/21 13:08 BP 126/92 H 11/15/21 13:08 Pulse Ox 95 11/15/21 15:50 Laboratory Results - last 24 hr 11/15/21 11/15/21 11/15/21 13:35 13:35 13:35 WBC 16.67 H RBC 3.10 L Hgb 10.0 L Hct 30.4 L MCV 98 H MCH 32.3 MCHC 32.9 RDW 16.3 H Plt Count 260 MPV 11.4 H Immature Gran % 0.6 Neutrophils % 90.9 Lymphocytes % 2.8 Monocytes % 5.4 Eosinophils % 0.1 Basophils % 0.2 Nucleated RBC % 0.0 Absolute Neutrophils 15.15 H Absolute Lymphocytes 0.47 L Absolute Monocytes 0.90 H Absolute Eosinophils 0.02 Absolute Basophils 0.03 PT 13.5 H INR 1.4 H Sodium 137 Potassium 5.0 Chloride 101 Carbon Dioxide 29.4 Anion Gap 6.6 BUN 48 H Creatinine 0.7 Est GFR (CKD-EPI 2020) 108.14 Glucose 123 H Calcium 9.1 Total Bilirubin 2.8 H AST 222 H ALT 147 H Alkaline Phosphatase 982 H Total Protein 6.3 L Albumin 2.7 L Lipase 35 COVID-19 Source 11/15/21 16:12 WBC RBC Hgb Hct MCV MCH MCHC RDW Plt Count MPV Immature Gran % Neutrophils % Lymphocytes % Monocytes % Eosinophils % Basophils % Nucleated RBC % Absolute Neutrophils Absolute Lymphocytes Absolute Monocytes Absolute Eosinophils Absolute Basophils PT INR Sodium Potassium Chloride Carbon Dioxide Anion Gap BUN Creatinine Est GFR (CKD-EPI 2020) Glucose Calcium Total Bilirubin AST ALT Alkaline Phosphatase Total Protein Albumin Lipase COVID-19 Source Nasal/Nares
--- NOTE | 2021-11-15 16:21 | W.PM.HP.N ---
Date of service: 11/15/21 Time of Service: 16:21 Assessment and Plan Assessment and plan (1) Abdominal ascites: Status: Acute Assessment and plan: s/p paracenthesis. Suspect etiology is malignancy +/- SBP. Continue empiric abx (cefepime). Pain control with IV dilaudid. (2) Sepsis: Status: Acute Assessment and plan: Patient presents with leucocytosis and with tachycardia. While blood cultures were not done in the ED, I do not think they would change his clinical course at this time as he is on empiric abx and is going home on hospice tomorrow if more comfortable. Will continue empiric cefepime. (3) SBP (spontaneous bacterial peritonitis): Status: Suspected Assessment and plan: As above (4) Pancreatic cancer metastasized to liver: Status: Acute Assessment and plan: As above. c/s palliative care. Anticipate discharge home tomorrow on hospice (5) DVT prophylaxis: Status: Acute Assessment and plan: on therapeutic apixaban (6) Discharge planning issues: Status: Acute Assessment and plan: DNR/DNI Comfort measures only Anticipate discharge home on hospice tomorrow. History of Present Illness History of Present Illness Chief Complaint: Abdominal pain and distention Narrative: Mr Peña is a 56 year old male with h/o metastatic pancreatic cancer, who decided to stop his palliative chemotherapy with plans for enrollment into home hospice tomorrow, who presented to [facility] ED today with 2-3 days of progressively worsening abdominal distention and pain, c/w ascites. He is s/p paracenthesis of 4.5 L of fluid (clear/light yellow) and received albumin in the ED. He received empiric zosyn. Hospitalist admission for pain control and antibiotics was requested in anticipation of his hospice enrollment tomorrow. The patient is DNR/DNI, continues to have significant abdominal pain. 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 Postop check (Acute) Inguinal hernia of right side without obstruction or gangrene (Acute) Pre-op evaluation (Acute) Medical History Tubular adenoma Tubular adenoma of colon (04/28/16) Surgical History Colonoscopy - IV Sedation (04/28/16) History of tooth extraction Status post right inguinal hernia repair Social History Smoking/Tobacco Use Status: Current every day Tobacco Type: cigarettes Smoking risk assessment performed?: Yes Alcohol Intake: never Drug use: Daily Substance use type: marijuana Current gender identity: male Do you feel safe at home: Yes Do you feel safe in your relationship?: Yes Meds Allergies and Home Medications Allergies Allergy/AdvReac Type Severity Reaction Status Date / Time No Known Allergies Allergy Unverified 08/18/19 14:20 Home Medications Medication Instructions Recorded Confirmed Type apixaban 5 mg tablet (Eliquis) 1 tab DAILY 11/15/21 11/15/21 History dexamethasone 4 mg tablet 1 tab DAILY 11/15/21 11/15/21 History (Decadron) doxepin 3 mg tablet 1 tab DAILY 11/15/21 11/15/21 History hydromorphone 8 mg tablet 1 tab Q4-5H 11/15/21 11/15/21 History rbfenc-otddrgpg-pxrxpbx 1 cap PO DAILY 11/15/21 11/15/21 History 24,000-76,000-120,000 unit capsule,delayed rel (Creon) lorazepam 1 mg tablet 1 mg PO Q4H PRN PRN anxiety, 11/15/21 Rx dyspnea, nasuea #10 tabs morphine 30 mg tablet,extended 1 tab PO PRN PRN 11/15/21 11/15/21 History release morphine concentrate 100 mg/5 mL See Rx Instructions PO Q1H PRN PRN 11/15/21 11/15/21 Rx (20 mg/mL) oral solution pain #30 mL potassium chloride 20 mEq 1 tab PO DAILY 11/15/21 11/15/21 History tablet,extended release(part/cryst) prochlorperazine maleate 10 mg 1 tab PRN PRN 11/15/21 11/15/21 History tablet (Compazine) Exam Narrative Exam Narrative: General: MIddle-aged male who is visibly uncomfortable in bed, coughing Neurological: A&Ox3, no focal deficits Psychiatric: difficult to evaluate due to acute pain Skin: mercer, intact HEENT: Atraumatic, normocephalic, EOMI, dry MM, no goiter or JVD Cardiovascular: RRR, tachycardic, no murmurs Lungs: Diminished breath sounds B, coughing Gastrointestinal: distended with ascites, diffusely painful Genitourinary: deferred Extremities: +1 BLE edema, no c/c. Results Labs Result diagrams: 11/15/21 13:35 11/15/21 13:35 Labs: Laboratory Results - last 24 hr 11/15/21 11/15/21 11/15/21 13:35 13:35 13:35 WBC 16.67 H RBC 3.10 L Hgb 10.0 L Hct 30.4 L MCV 98 H MCH 32.3 MCHC 32.9 RDW 16.3 H Plt Count 260 MPV 11.4 H Immature Gran % 0.6 Neutrophils % 90.9 Lymphocytes % 2.8 Monocytes % 5.4 Eosinophils % 0.1 Basophils % 0.2 Nucleated RBC % 0.0 Absolute Neutrophils 15.15 H Absolute Lymphocytes 0.47 L Absolute Monocytes 0.90 H Absolute Eosinophils 0.02 Absolute Basophils 0.03 PT 13.5 H INR 1.4 H Sodium 137 Potassium 5.0 Chloride 101 Carbon Dioxide 29.4 Anion Gap 6.6 BUN 48 H Creatinine 0.7 Est GFR (CKD-EPI 2020) 108.14 Glucose 123 H Calcium 9.1 Total Bilirubin 2.8 H AST 222 H ALT 147 H Alkaline Phosphatase 982 H Total Protein 6.3 L Albumin 2.7 L Lipase 35 COVID-19 Source 11/15/21 16:12 WBC RBC Hgb Hct MCV MCH MCHC RDW Plt Count MPV Immature Gran % Neutrophils % Lymphocytes % Monocytes % Eosinophils % Basophils % Nucleated RBC % Absolute Neutrophils Absolute Lymphocytes Absolute Monocytes Absolute Eosinophils Absolute Basophils PT INR Sodium Potassium Chloride Carbon Dioxide Anion Gap BUN Creatinine Est GFR (CKD-EPI 2020) Glucose Calcium Total Bilirubin AST ALT Alkaline Phosphatase Total Protein Albumin Lipase COVID-19 Source Nasal/Nares Last Vital Signs Temp 36.8 C 11/15/21 13:08 Pulse 103 H 11/15/21 16:16 BP 112/79 11/15/21 16:16 Pulse Ox 97 11/15/21 16:16
[2021-11-15] MEDS: ALBUMIN HUMAN 25 GM/100 ML BTL IVPB ×2 (16:27→17:32)
[2021-11-15 16:47] LABS: COVID-19 PCR Negative (Negative)
[2021-11-15] MEDS: LORazepam 1 MG TAB PO (18:26)
[2021-11-15] MEDS: Normal Saline Flush 10 ML SYR IVP ×5 (18:43→23:28)
[2021-11-15] MEDS: Apixaban 5 MG TAB PO (20:15)
[2021-11-15] MEDS: Scopolamine 1 MG/3 DAYS PATCH TD (20:16)
[2021-11-15] MEDS: Normal Saline 500 ML 30 ML IV (21:49)
[2021-11-15] MEDS: CEFEPIME 2 GM in Normal Saline 100 ML IVPB (21:50)
[2021-11-15] MEDS: LORazepam 2 MG/ML VIAL IVP (23:28)
[2021-11-16] MEDS: LORazepam 2 MG/ML VIAL IVP ×4 (03:44→11:49)
[2021-11-16] MEDS: HYDROmorphone 2 MG/ML SYR IVP ×3 (03:45→11:48)
[2021-11-16] MEDS: Normal Saline Flush 10 ML SYR IVP ×6 (03:46→11:48)
[2021-11-16] MEDS: CEFEPIME 2 GM in Normal Saline 100 ML IVPB ×3 (06:13→21:46)
[2021-11-16] MEDS: Normal Saline 500 ML 30 ML IV ×2 (06:13→16:26)
[2021-11-16 06:15] LABS: Abs Immature Grans 0.07 10^3/uL (0.0-0.06); Absolute Basophil Count 0.03 10^3/uL (0.0-0.2); Absolute Eosinophil Count 0.07 10^3/uL (0.0-0.7); Absolute Monocyte Count 0.97 10^3/uL (0.1-0.8); Basophils % 0.2; Eosinophils % 0.5; HCT 26.3 % (40.0-50.0); HGB 8.7 g/dL (13.5-17.5); Immature Grans % 0.5; Lymphocytes % 5.3; MCH 31.9 pg (27.0-33.0); MCHC 33.1 % (32.0-36.0); MCV 96 fL (80-95); MPV 11.5 fL (8.0-11.0); Monocytes % 7.4; Neutrophils % 86.1; Platelet Count 192 10^3/uL (130-400); RBC 2.73 10^6/uL (4.36-5.78); RDW 16.6 % (11.8-14.1); RDW-SD 57.9 fL; WBC 13.13 10^3/uL (4.4-10.8)
[2021-11-16 06:36] LABS: ALT 139 U/L (16-63); AST 236 U/L (15-37); Albumin 2.9 g/dL (3.4-5.0); Alkaline Phosphatase 822 U/L (46-116); Anion Gap 7.4 mmol/L (3-11); BUN 44 mg/dL (7-18); Bilirubin, Total 2.5 mg/dL (0.2-1.0); CO2 27.6 mmol/L (21.0-32.0); CREATININE 0.7 mg/dL (0.70-1.30); Calcium 8.6 mg/dL (8.5-10.1); Chloride 103 mmol/L (98-107); Estimated GFR 108.14 (mL/min/1.73m2); Glucose 86 mg/dL (74-106); Magnesium 2.1 mg/dL (1.8-2.4); Potassium 4.5 mmol/L (3.5-5.1); Sodium 138 mmol/L (136-145); Total Protein 5.8 g/dL (6.4-8.2)
[2021-11-16 06:55] LABS: Diff Comment Diff Reviewed
[2021-11-16 06:56] LABS: Hypochromasia 1+
--- NOTE | 2021-11-16 10:41 | TELEP.MEDR_ITS ---
Date of service: 11/16/21 Time of Service: 10:52 Telepharmacy Home Med Rec Allergies Allergies: No Known Allergies Allergy (Unverified 08/18/19 14:20) Interview Person Interviewed: Charity - significant other Quality Quality of Interview/Accuracy of Medication List: Good Sources Sources used to compile medication list: Prepared Response Medication List, Patient List, SureScripts and Other Changes made to Home Medication List: ADDITIONS: none DELETIONS: Morphine sulfate concentrate - they dont have this and do not use it according ot Charity Lorazepam is only used when he is in the hospital not at home CHANGES: Eliquis is 5mg twice daily not once daily dexamehtasone is 2mg twice daily not 4mg once daily Creon is taken 3 capsules with each meal and one capsule with each snack not one capsule a day Additional Notes Additional Notes: Was unable to silke the morphine extended release as confirmed the record is locked by another user Recommended Changes Recommended Changes(reason for recommendation): none Attestation: The home medication list is now updated to the best of my knowledge and is ready to be reconciled by the provider. Please contact the TelePharmacy Medication Reconciliation Pharmacist at for any questions.
[2021-11-16] MEDS: Ondansetron 4 MG/2 ML VIAL IVP (10:55)
--- NOTE | 2021-11-16 11:28 | PDOC.CMIN ---
- If Service Date Differs Date of service: 11/16/21 Time of Service: 11:28 Care Management Initial Assess REASON FOR HOSPITALIZATION:: metastatic pancreatic cancer PAST MEDICAL HISTORY/PAST SURGICAL HISTORY:: All Active Problems (Updated 11/15/21 @ 18:56 by Shelbie Davis MD). Discharge planning issues (Acute). DVT prophylaxis (Acute). Sepsis (Acute). Abdominal ascites (Acute). Smoker (Acute). Cancer related pain (Acute). Hospice care patient (Acute). Pancreatic cancer metastasized to liver (Acute). mixed ductal/neuroendocrine carcinoma, stage iv. diagnosed Oct 2020. Postop check (Acute). Inguinal hernia of right side without obstruction or gangrene (Acute). Pre-op evaluation (Acute). Medical History . Tubular adenoma. Tubular adenoma of colon (04/28/16). Surgical History . Colonoscopy - IV Sedation (04/28/16). History of tooth extraction. Status post right inguinal hernia repair PREVIOUS FUNCTIONAL STATUS/SOCIAL/FAMILY SUPPORTS:: Roney lives in [place] with his significant other Charity. Roney has idenified his Son Tony as being his next of Kin. [facility] has been failing due to Metastatic Pancreatic cancer. CURRENT FUNCTIONAL STATUS:: Roney is lying in bed when CM met with him. He is on a CAD pump for pain management and resting. He is surrounded by his family. Roney and family have been in contact with Nelson from Hospice. Roney is planning on discharging to his [place] home tomorrow, with same day admission to Hospice. Halie is ordering DME through [facility]. CM will arrange EMS transport, when DME ETA is known. Tony would like to be kept up to date on ETA's. ADVANCE DIRECTIVES:: None on file. Per 11/16/21 Palliative Care Note: Charity states that patient stated that his preference would be to have Tony sign any formal paperwork. Tony is next of kin, Charity primary contact, both on HIPAA. Has patient been provided with info about the portal/API?: Yes Did the patient sign up for the portal?: No CODE STATUS:: DNR/DNI INSURANCE COVERAGE / FINANCIAL ISSUES:: Medicaid CURRENT HOME/COMMUNITY SERVICES/EQUIPMENT:: Tub seat and bench. Commode. Wheelchair. Ramp PRIMARY CARE PHYSICIAN:: Risa Orellana POTENTIAL DISCHARGE NEEDS:: Hospice CAD pump, prior to transport. DME through [facility]: Hospital bed, bedside table. EMS transportation. Same day admission to Hospice PATIENT/FAMILY EDUCATION NEEDS:: Review discharge instructions, limitations, medications and plan to follow up with community providers. Discuss ask me three. TRANSPORTATION:: Via EMS PLAN:: Roney is planning on discharging to his [facility] tomorrow, with same day admission to Hospice services. Halie is ordering DME through [facility] and transition pt to a Hospice CAD pump prior to discharge. CM will arrange EMS transport tomorrow. CM will contact Benny from Hospice tomorrow morning to solidify discharge details. Patient's son Tony would like to be kept up to date on ETA's.
[2021-11-16] MEDS: HYDROmorphone 200 MG in CADD PUMP CASSETTE 1 EACH, Normal Saline 80 ML IV (12:53)
--- NOTE | 2021-11-16 13:49 | W.PM.PROGNOT ---
Date of Service Date of service: 11/16/21 Time of Service: 13:49 Assessment and Plan Assessment and plan (1) Sepsis: Status: Acute Assessment and plan: Patient presents with leucocytosis and with tachycardia, presumably due to SBP. Will continue empiric cefepime as discussed with family, as treating SBP could alleviate some of the abdominal discomfort. peritoneal fluid cx, however, are negative to date. Also has an infusaport - could be a source of infection. However, culturing him at this point/working this up further would contradict his overall goals of care. Await outcome of the palliative care meeting today. (2) Abdominal ascites: Status: Acute Assessment and plan: s/p paracenthesis and albumin infusion in the ED. Suspect etiology is malignancy +/- SBP. Peritoneal fluid cx are negative @ 24 hrs. Continue empiric abx (cefepime). Pain control with IV dilaudid (now via a CADD pump). (3) SBP (spontaneous bacterial peritonitis): Status: Suspected Assessment and plan: As above (4) Pancreatic cancer metastasized to liver: Status: Acute Assessment and plan: As above. Palliative care consulted and expected to see the patient today. Anticipate discharge home tomorrow on hospice (5) DVT prophylaxis: Status: Acute Assessment and plan: on therapeutic apixaban (6) Discharge planning issues: Status: Acute Assessment and plan: DNR/DNI Comfort measures only Anticipate discharge home on hospice tomorrow. Subjective Subjective Interval history since last seen: Mr Peña is resting comfortably. I spoke with his spouse who is in the room with him - we agreed I won't wake him up. He was initiated on a dilaudid CADD pump today because he had required close to 10 mg of IV dilaudid in 12 hrs and was still uncomfortable. Exam Narrative Exam Narrative: General: Middle-aged male who appears to be resting comfortably HEENT: eyes closed, dry MM Heart: not auscultated Lungs: nonlabored breathing Abdomen: covered in blankets Extremities: covered in blankets Objective Last Vital Signs Temp 36.9 C 11/15/21 17:49 Pulse 109 H 11/15/21 17:49 Resp 22 11/15/21 17:49 BP 112/76 11/15/21 17:49 Pulse Ox 96 11/15/21 17:49 Laboratory Results - last 24 hr 11/15/21 11/15/21 11/15/21 13:35 13:35 13:35 WBC 16.67 H RBC 3.10 L Hgb 10.0 L Hct 30.4 L MCV 98 H MCH 32.3 MCHC 32.9 RDW 16.3 H Plt Count 260 MPV 11.4 H Immature Gran % 0.6 Neutrophils % 90.9 Lymphocytes % 2.8 Monocytes % 5.4 Eosinophils % 0.1 Basophils % 0.2 Nucleated RBC % 0.0 Absolute Neutrophils 15.15 H Absolute Lymphocytes 0.47 L Absolute Monocytes 0.90 H Absolute Eosinophils 0.02 Absolute Basophils 0.03 RBC Morphology Hypochromasia PT 13.5 H INR 1.4 H Sodium 137 Potassium 5.0 Chloride 101 Carbon Dioxide 29.4 Anion Gap 6.6 BUN 48 H Creatinine 0.7 Est GFR (CKD-EPI 2020) 108.14 Glucose 123 H Calcium 9.1 Magnesium Total Bilirubin 2.8 H Conjugated Bilirubin AST 222 H ALT 147 H Alkaline Phosphatase 982 H Total Protein 6.3 L Albumin 2.7 L Lipase 35 COVID-19 Source SARS-CoV-2 (PCR) 11/15/21 11/16/21 11/16/21 16:12 05:52 05:52 WBC 13.13 H RBC 2.73 L Hgb 8.7 L Hct 26.3 L MCV 96 H MCH 31.9 MCHC 33.1 RDW 16.6 H Plt Count 192 MPV 11.5 H Immature Gran % 0.5 Neutrophils % 86.1 Lymphocytes % 5.3 Monocytes % 7.4 Eosinophils % 0.5 Basophils % 0.2 Nucleated RBC % 0.0 Absolute Neutrophils 11.30 H Absolute Lymphocytes 0.70 L Absolute Monocytes 0.97 H Absolute Eosinophils 0.07 Absolute Basophils 0.03 RBC Morphology See Below Hypochromasia 1+ PT INR Sodium 138 Potassium 4.5 Chloride 103 Carbon Dioxide 27.6 Anion Gap 7.4 BUN 44 H Creatinine 0.7 Est GFR (CKD-EPI 2020) 108.14 Glucose 86 Calcium 8.6 Magnesium 2.1 Total Bilirubin 2.5 H Conjugated Bilirubin 2.0 H AST 236 H ALT 139 H Alkaline Phosphatase 822 H Total Protein 5.8 L Albumin 2.9 L Lipase COVID-19 Source Nasal/Nares SARS-CoV-2 (PCR) Negative
--- NOTE | 2021-11-16 15:52 | W.PALLCONSUL ---
Date of service: 11/16/21 Time of Service: 14:00 History of Present Illness Narrative: Mr. Rucker (Roney) is a 56 y/o M currently inpatient at [facility] 2/2 metastatic pancreatic cancer w/mets to bone and liver; PC consult placed to review CODE status and direction of care Present at today's visit patient's partner 15 years Charity, patient's son Tony and his Courtney, son Jimmy and son Gregorio. Patient sleeping comfortably throughout visit. Report patient has clearly stated would no longer like to be engaged in oncology treatments, preference for comfort measures only focusing on a dignified . 2 weeks ago pt and Tony discussed goal to return home to [place] for end-of-life, however family all agrees now patient should return home to [place] on hospice. wedding day coordinator Laureano met with family yesterday and reviewed hospice, they agree to this at this time. Preference to have patient home for end-of-life versus remaining in hospital. Had CADD pumped placed this afternoon with drastic improvement to patient's overall comfort, is been sleeping comfortably for around 1 hour, no witnessed bolus uses from nursing staff. Patient had not completed advanced directives, living will or healthcare agent forms. Charity states that patient stated that his preference would be to have Tony sign any formal paperwork. Tony is next of kin, Charity primary contact, both on HIPAA. Family feel patient would be able to use bed in home, however concerns of it being too high for him to get in and out of appropriately, agreeable to hospital bed. Would need to be transported home via ambulance, there is a ramp to get into home. Already have a wheelchair and commode. Preference to remain on CADD pump. Assessment and Plan Assessment and plan (1) Encounter for hospice care discussion: Status: Acute Assessment and plan: Goal for discharge home on hospice tomorrow as early as possible; CM to contact [facility] for timeline DME: hospital bed, bedside table plan for transport via ambulance home (2) Physician orders for life-sustaining treatment (POLST) form indicates patient wish for [id number] status: Status: Acute Assessment and plan: COLST completed w/all family present and agree DNR/I, no artificial nutrition, no hydration, continue limited abx w/comfort as goal, may review and d/c tomorrow, consider PO as tolerated; CELLULOID TRIMMER (3) SBP (spontaneous bacterial peritonitis): Status: Suspected Assessment and plan: fluid drained yesterday, continue abx at this time, reconsider at discharge (4) Abdominal ascites: Status: Acute Assessment and plan: s/p paracenthesis and albumin infusion in the ED. Suspect etiology is malignancy +/- SBP. Peritoneal fluid cx are negative @ 24 hrs. Continue empiric abx (cefepime). Pain control with IV dilaudid (now via a CADD pump). (5) Cancer related pain: Status: Acute Assessment and plan: improved control w/CADD pump hydromorphone 1mg/hr w/0.5mg bolus q15 PRN continue w/dose adjustments as needed (6) Pancreatic cancer metastasized to liver: Status: Acute Review of Systems Narrative: as per HPI, pt did not participate in visit PFSH All Active Problems (Updated 11/16/21 @ 16:01 by Janna Vuong NP) Encounter for hospice care discussion (Acute) Physician orders for life-sustaining treatment (POLST) form indicates patient wish for [id number] status (Acute) Discharge planning issues (Acute) DVT prophylaxis (Acute) Sepsis (Acute) Abdominal ascites (Acute) Smoker (Acute) Cancer related pain (Acute) Hospice care patient (Acute) Pancreatic cancer metastasized to liver (Acute) mixed ductal/neuroendocrine carcinoma, 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 Postop check (Acute) Inguinal hernia of right side without obstruction or gangrene (Acute) Pre-op evaluation (Acute) Medical History Tubular adenoma Tubular adenoma of colon (04/28/16) Surgical History Colonoscopy - IV Sedation (04/28/16) History of tooth extraction Status post right inguinal hernia repair Social History Smoking/Tobacco Use Status: Current every day Tobacco Type: cigarettes Smoking risk assessment performed?: Yes Alcohol Intake: never Drug use: Daily Substance use type: marijuana Current gender identity: male Do you feel safe at home: Yes Do you feel safe in your relationship?: Yes Exam Const General: comfortable, no acute distress, frail appearing and ill appearing chronically Nutritional Appearance: cachectic Orientation: other (sleeping, not aroused w/light touch) Other: no grimace blankets cover body Resp Effort & Inspection: normal respiratory effort, no audible wheezes and no cough Other: supine Skin Other: jaundice throughout Extrem Other: BLE/BUE warm to touch, pulses 2+ throughout Results Last Vital Signs Temp 98.4 F 11/15/21 17:49 Pulse 109 H 11/15/21 17:49 Resp 22 11/15/21 17:49 BP 112/76 11/15/21 17:49 Pulse Ox 96 11/15/21 17:49 Labs Result diagrams: 11/16/21 05:52 11/16/21 05:52 Labs: Laboratory Results - last 24 hr 11/15/21 11/16/21 11/16/21 16:12 05:52 05:52 WBC 13.13 H RBC 2.73 L Hgb 8.7 L Hct 26.3 L MCV 96 H MCH 31.9 MCHC 33.1 RDW 16.6 H Plt Count 192 MPV 11.5 H Immature Gran % 0.5 Neutrophils % 86.1 Lymphocytes % 5.3 Monocytes % 7.4 Eosinophils % 0.5 Basophils % 0.2 Nucleated RBC % 0.0 Absolute Neutrophils 11.30 H Absolute Lymphocytes 0.70 L Absolute Monocytes 0.97 H Absolute Eosinophils 0.07 Absolute Basophils 0.03 RBC Morphology See Below Hypochromasia 1+ Sodium 138 Potassium 4.5 Chloride 103 Carbon Dioxide 27.6 Anion Gap 7.4 BUN 44 H Creatinine 0.7 Est GFR (CKD-EPI 2020) 108.14 Glucose 86 Calcium 8.6 Magnesium 2.1 Total Bilirubin 2.5 H Conjugated Bilirubin 2.0 H AST 236 H ALT 139 H Alkaline Phosphatase 822 H Total Protein 5.8 L Albumin 2.9 L COVID-19 Source Nasal/Nares SARS-CoV-2 (PCR) Negative
--- NOTE | 2021-11-16 16:11 | CHAPLAIN ---
I visited Roney Rucker twice today and will check in before the end of the day. Chaim has been sleeping today. I did not see him awake. His SO is with him and spent the night. His son and two brothers have also been in visiting, some spent the night. It's been decided that Chaim will go home on hospice care, to his home in [place], not to [place] with his son as was the original plan. Family agreed to this plan while meeting with Janna Vuong NP, for a Palliative consult. I will make sure family is aware that blending plant operator support is available 28/08.
[2021-11-17] MEDS: CEFEPIME 2 GM in Normal Saline 100 ML IVPB ×2 (06:24→13:34)
--- NOTE | 2021-11-17 11:28 | PDOC.CMDIS ---
- If Service Date Differs Date of service: 11/17/21 Time of Service: 11:28 LACE Index Scoring Tool - Questions: Length of Stay (in days): 2 Acuity (Admit via E.D.?): Yes Comorbidities: Any Tumor, Liver or Renal Disease, Metastatic Solid Tumor E.D. Visits: 1 - Answers: Total Score: 11 Risk of Readmission: High Risk Care Management Discharge Reason for Hospitalization: metastatic pancreatic cancer Discharge Plan: Roney will discharge home to be admitted to Hospice. He will transport via [facility]. Cadd Pump to be placed by EMANI Zapata at 1300, transport coordinated for 1400, Hospice, M/S and son, Tony notified of plan. Patient/Family Education Needs: Review discharge instructions, discuss Ask Me Three. Services Needed at Discharge: Home Health Care Services ([facility] ), [facility]
--- NOTE | 2021-11-17 12:16 | W.PM.DS.N ---
DS: Diagnosis Discharge Diagnosis (1) Encounter for hospice care discussion: Status: Acute (2) Physician orders for life-sustaining treatment (POLST) form indicates patient wish for [id number] status: Status: Acute (3) SBP (spontaneous bacterial peritonitis): Status: Suspected (4) Abdominal ascites: Status: Acute (5) Cancer related pain: Status: Acute (6) Pancreatic cancer metastasized to liver: Status: Acute Discharge Plan Disposition Patient Disposition: HOSPICE, HOME Condition: Deteriorating Discharge Details Reason For Visit: SBP, Metastatic Pancreatic Cancer Admit Date/Time: 11/15/21 15:50 Admit Provider: Shelbie Davis Attending Provider: Shelbie Davis Primary Care Provider: Risa Orellana Hospital Course Hospital Course: Mr Peña is a 56 year old male with a pmhx of metastatic pancreatic cancer, who stopped his palliative chemotherapy with plans for enrollment into home hospice 11/16/2021 who presented to [facility] ED 11/15/2021 ?with 2-3 days of progressively worsening abdominal distention and pain with ascites. He had a paracentesis performed by Dr Gallego while in the ED of 4.5 L clear/light yellow fluid. He received albumin. He received empiric Piperacillin/Tazo and Cefepimen IV. He was admitted for pain control and antibiotics. The patient is DNR/DNI.? After admission to the medical floor, a subcutaneous Hydromorphone CADD pump was started 1-4 mg. He was given Ondansetron for nausea and lorazepam for anxiety.? He does have a scopalamine patch on (11/17/2021.The hydromorphone was titrated up until the patient was comfortable, currently @ 3 mg/h, he received 13 boluses of 0.5 mg since 1 PM 11/16/2021. He discussed with his family his going home on hospice and decided that is the course he wants to take.? Hospice was consulted and he was discharged to home via [facility], comfortable. Discussed with Dr Davis Home Meds and New Rx's Prescriptions: New docusate sodium [Colace] 100 mg Capsule 100 mg PO TID PRN PRNQty: 0 0RF hydromorphone 2 mg/mL syringe See Rx Instructions .ROUTE .COMPLEX Qty: 100 0RF Rx Instructions: 2 mg subcutaneously via CADD pump; 1-4 mg/h with bolus 0.5 mg/15 min as needed; further orders from Hospice provider Continued prochlorperazine maleate [Compazine] 10 mg tablet 1 tab Q6H PRN PRN Label Comments: Take 1 tablet by mouth every six hours dexamethasone [Decadron] 4 mg tablet 2 mg BID Label Comments: Take 1/2 tablet by mouth twice a day with meals Discontinued hydromorphone 8 mg tablet 1 - 2 tab PO Q4H PRN (Reason: Pain) Label Comments: TAKE 1-2 TABLETS BY MOUTH EVERY 4 HOURS NEEDED FOR PAIN morphine 30 mg tablet extended release 1 tab PO BID Label Comments: TAKE ONE TABLET BY MOUTH TWICE A DAY potassium chloride 20 mEq tablet,ER particles/crystals 1 tab PO BID Label Comments: TAKE ONE TABLET BY MOUTH TWICE A DAY Creon 24,000-76,000 -120,000 unit capsule,delayed release(DR/EC) 2 cap PO QMEALS Label Comments: TAKE TWO CAPSULES BY MOUTH THREE TIMES A DAY WITH MEALS, AND TAKE ONE CAPSULE BY MOUTH WITH SNACK . UP TO NINE CAPSULES PER DAY Rx Instructions: PLUS 1 CAPSULE WITH SNACKS doxepin 3 mg tablet 1 tab DAILY Label Comments: TAKE 1 TABLET BY MOUTH NIGHTLY NEEDED TAKE FOR SLEEP 30 MINUTES BEFORE BEDTIME Eliquis 5 mg tablet 1 tab BID Label Comments: TAKE ONE TABLET BY MOUTH TWICE A DAY Discharge Instructions Instructions: Hospice Care (GEN) Additional Instructions: per [facility] Stand Alone Forms: Nursing Discharge Form Activity:: Activity as Tolerated Equipment/Supplies:: No Equipment Needed Diet:: As Tolerated Discharge Orders Discharge Orders: Discharge Order (Routine); Ordered 11/17/21 Ordered By: Anju Crandall Discharge Data Discharge Date/Time-TO BE ENTERED AT DEPARTURE: 11/17/21 14:26 DS: Summary Time Spent with Patient providing and/or coordinating discharge services: Less than 30 minutes Status at Discharge Functional status at discharge: bed bound Overall status at discharge: other ([employer] going home on hospice) Mental Status: mental status grossly normal Speech and Movement: slowed movement and slurred speech Mood: labile mood Affect: normal affect and blunted Exam Const General: comfortable, no acute distress, frail appearing and ill appearing chronically Nutritional Appearance: cachectic Other: no grimace blankets cover body Resp Effort & Inspection: normal respiratory effort, no audible wheezes and no cough Other: supine Skin Other: jaundice throughout Extrem Other: BLE/BUE warm to touch, pulses 2+ throughout Psych Mental Status: mental status grossly normal Speech and Movement: slowed movement and slurred speech Mood: labile mood Affect: normal affect and blunted DS: Data Vitals/I&O Vitals and I&O: Vital Signs Temperature 36.9 C 11/15/21 17:49 Temperature Source Temporal Artery Scan 11/15/21 13:08 Pulse 109 H 11/15/21 17:49 Pulse Rhythm Regular 11/15/21 17:49 Respiratory Rate 11/15/21 17:49 Respiratory Effort 11/15/21 17:49 Respiratory Depth Normal 11/15/21 17:49 Respiratory Pattern Normal 11/15/21 17:49 Blood Pressure 112/76 11/15/21 17:49 Blood Pressure Mean 100 11/15/21 16:31 Blood Pressure Position Sitting 11/15/21 13:08 Pulse Oximetry 96 11/15/21 17:49 Oxygen Delivery Method Room Air 11/15/21 17:49 Oxygen Flow Rate 0 11/15/21 17:49 Pain Level 11/16/21 03:45 Intake & Output 11/16/21 11/17/21 11/17/21 23:59 11:59 23:59 Intake Total 277 / 447 140.958 / 140.958 Output Total 350 / 350 Balance 277 / 447 -209.042 / -209.042 Weight 50.9 kg Intake: IV 277 / 417 110.958 / 110.958 Oral 30 / 30 Output: Urine 350 / 350 Other: Urine Color Williamson Pale Urine Appearance Clear Clear Urine Odor Strong Comment Patient bladder scanned and this typewriter aligner kept getting reports between 200-300. Patients abdomen is distended and ascities present. Bañuelos catheter order for comfort when needed. Voiding Methods Toilet Toilet Data Completed and Pending Labs on day of discharge: Preliminary micro results at discharge 11/15/21 15:38 Body Fluid Culture - Preliminary Paracentesis PFSH All Active Problems (Updated 11/16/21 @ 16:01 by Janna Vuong NP) Encounter for hospice care discussion (Acute) Physician orders for life-sustaining treatment (POLST) form indicates patient wish for [id number] status (Acute) Discharge planning issues (Acute) DVT prophylaxis (Acute) Sepsis (Acute) Abdominal ascites (Acute) Smoker (Acute) Cancer related pain (Acute) Hospice care patient (Acute) Pancreatic cancer metastasized to liver (Acute) mixed ductal/neuroendocrine carcinoma, 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 Postop check (Acute) Inguinal hernia of right side without obstruction or gangrene (Acute) Pre-op evaluation (Acute) Medical History Tubular adenoma Tubular adenoma of colon (04/28/16) Surgical History Colonoscopy - IV Sedation (04/28/16) History of tooth extraction Status post right inguinal hernia repair Social History Smoking/Tobacco Use Status: Current every day Tobacco Type: cigarettes Smoking risk assessment performed?: Yes Alcohol Intake: never Drug use: Daily Substance use type: marijuana Current gender identity: male Do you feel safe at home: Yes Do you feel safe in your relationship?: Yes
[2021-11-17] MEDS: Normal Saline Flush 10 ML SYR IVP (13:35)
== END 2021-11-17 14:26 ==
LOC: ER 15:57 → MS 16:59
PROVIDERS: Admitting Provider Internal Medicine; Emergency Provider Student in an Organized Health Care Education/Training Program; PCP Nurse Practitioner; Visit Provider Internal Medicine
DX: A41.9 Sepsis, unspecified organism (principal); R18.8 Other ascites; C25.9 Malignant neoplasm of pancreas, unspecified; C78.7 Secondary malignant neoplasm of liver and intrahepatic bile duct; G89.3 Neoplasm related pain (acute) (chronic); Z20.822 Contact with and (suspected) exposure to COVID-19; F17.210 Nicotine dependence, cigarettes, uncomplicated; Z66 Do not resuscitate; Z51.5 Encounter for palliative care
CPT/HCPCS: 36415; 49082; 80048; 80053; 80076; 83690; 87635; 96365; 96366; 96368; 96374; 96375; 99285; 83735; 85025; 85610; 87070; 87205; 99217; 99219; 99231; G0378; J1170; J2060; J2405; J2543